=== PATIENT | female | born 1960 | race Caucasian/White ===

== ENCOUNTER 2018-02-06 09:32 | Observation (INO) | payer BC ==
[2018-02-06] MEDS ORDERED: NITROGLYCERIN OINT 1 INCH/GM PACKET TOPICAL STA (09:48)
--- NOTE | 2018-02-06 09:51 | ED ---
General Adult HPI - General Chief complaint: Chest Pain Stated complaint: Chest Pain Time Seen by Provider: 02/06/18 09:35 Source: EMS, RN notes reviewed Mode of arrival: EMS Limitations: no limitations - History of Present Illness Initial comments: This is a 57-year-old female who presents emergency Department complaining of chest pain. Patient states she started becoming short of breath on Friday thought she just had a cold and as of this morning she started having chest pain when she woke up. Patient went to an urgent care and they transferred her here immediately. Patient states she was sweaty earlier when she was having the chest pain as well. Patient states she was told after she had a CAT scan that she had a coronary artery blockage into lung masses neither of which she is followed up for. Patient also is a diabetic with hypertension and high cholesterol. Patient states she was a smoker but she quit 19 years ago. Patient denies any recent fever chills or cough. Patient denies any abdominal pain patient denies nausea vomiting diarrhea. Patient denies any lightheadedness dizziness or near syncopal episode. Patient denies any leg pain or Pain. Patient denies any leg swelling. - Related Data Home Medications Medication Instructions Recorded Confirmed Aspirin 325 mg PO DAILY 02/06/18 02/06/18 Citalopram Hydrobromide 40 mg PO DAILY 02/06/18 02/06/18 [Citalopram HBr] Dulaglutide [Trulicity] 1.5 mg SQ VASQUEZ 02/06/18 02/06/18 Insulin Degludec [Tresiba 40 unit SQ QAM 02/06/18 02/06/18 Flextouch U-100] Insulin Degludec [Tresiba 60 unit SQ HS 02/06/18 02/06/18 Flextouch U-100] Levothyroxine Sodium [Synthroid] 150 mcg PO DAILY 02/06/18 02/06/18 Lisinopril [Zestril] 20 mg PO DAILY 02/06/18 02/06/18 Omeprazole 40 mg PO DAILY 02/06/18 02/06/18 buPROPion XL [Wellbutrin Xl] 300 mg PO DAILY 02/06/18 02/06/18 metFORMIN HCL 1,000 mg PO BID 02/06/18 02/06/18 rOPINIRole HCL 4 mg PO HS 02/06/18 02/06/18 Allergies Allergy/AdvReac Type Severity Reaction Status Date / Time Penicillins Allergy Rash/Hives Verified 02/06/18 10:37 Review of Systems ROS Statement: Those systems with pertinent positive or pertinent negative responses have been documented in the HPI. ROS Other: All systems not noted in ROS Statement are negative. Past Medical History Past Medical History: Asthma, Diabetes Mellitus, GERD/Reflux, Hyperlipidemia, Hypertension, Sleep Apnea/CPAP/BIPAP, Thyroid Disorder Additional Past Medical History / Comment(s): 11/2018 - 7cm and 5cm mass found on lungs and coronary blockage History of Any Multi-Drug Resistant Organisms: None Reported Past Surgical History: Cholecystectomy, Hysterectomy Additional Past Surgical History / Comment(s): carpal tunnel release Past Psychological History: Depression Smoking Status: Former smoker Past Alcohol Use History: None Reported Past Drug Use History: None Reported General Exam - General Exam Comments Initial Comments: GENERAL: Patient is well-developed and well-nourished. Patient is nontoxic and well- hydrated and is in mild distress. ENT: Neck is soft and supple. No significant lymphadenopathy is noted. Oropharynx is clear. Moist mucous membranes. Neck has full range of motion without eliciting any pain. EYES: The sclera were anicteric and conjunctiva were pink and moist. Extraocular movements were intact and pupils were equal round and reactive to light. Eyelids were unremarkable. PULMONARY: Unlabored respirations. Good breath sounds bilaterally. No audible rales rhonchi or wheezing was noted. CARDIOVASCULAR: There is a regular rate and rhythm without any murmurs gallops or rubs. ABDOMEN: Soft and nontender with normal bowel sounds. SKIN: Skin is clear with no lesions or rashes and otherwise unremarkable. NEUROLOGIC: Patient is alert and oriented x3. Cranial nerves II through XII are grossly intact. Motor and sensory are also intact. Normal speech, volume and content. Symmetrical smile. MUSCULOSKELETAL: Normal extremities with adequate strength and full range of motion. No lower extremity swelling or edema. No calf tenderness. LYMPHATICS: No significant lymphadenopathy is noted PSYCHIATRIC: Normal psychiatric evaluation. Normal interpersonal interactions appears functionally intact in deals appropriately with others. No signs of depression. No signs of anxiety. Limitations: no limitations Course Vital Signs 02/06/18 02/06/18 09:35 10:45 Temperature 97.9 F Pulse Rate 71 75 Respiratory 18 20 Rate Blood Pressure 140/72 112/65 O2 Sat by Pulse 97 96 Oximetry Medical Decision Making - Medical Decision Making EKG shows normal sinus rhythm at 72 bpm MI interval is 146 dresses 94 Q-T intervals 434 QTC is 475. Patient's EKG shows no ST segment elevation or depression or T wave abnormalities are noted. Chest x-ray shows no acute abnormality. Patient's pain was relieved with nitroglycerin. Patient was started on heparin because of the unstable angina and although risk factors. I reviewed the CAT scan that was done at [facility] and it showed extensive coronary artery calcifications. I spoke with Dr. Bean she agreed to admit the patient admitted the patient I consult cardiology continued heparin and aspirin and Nitropaste on the floor. - Lab Data Result diagrams: 02/06/18 09:46 02/06/18 09:46 Lab Results 02/06/18 02/06/18 02/06/18 Range/Units 09:46 09:46 09:46 WBC 6.0 (3.8-10.6) k/uL RBC 4.45 (3.80-5.40) m/uL Hgb 13.2 (11.4-16.0) gm/dL Hct 37.0 (34.0-46.0) % MCV 83.1 (80.0-100.0) fL MCH 29.7 (25.0-35.0) pg MCHC 35.7 (31.0-37.0) g/dL RDW 13.5 (11.5-15.5) % Plt Count 245 (150-450) k/uL Neutrophils % 53 % Lymphocytes % 31 % Monocytes % 3 % Eosinophils % 12 % Basophils % 1 % Neutrophils # 3.2 (1.3-7.7) k/uL Lymphocytes # 1.9 (1.0-4.8) k/uL Monocytes # 0.2 (0-1.0) k/uL Eosinophils # 0.7 (0-0.7) k/uL Basophils # 0.0 (0-0.2) k/uL Hyperchromasia Slight PT (9.0-12.0) sec INR (<1.2) APTT (22.0-30.0) sec D-Dimer (<0.60) mg/L FEU Sodium 136 L (137-145) mmol/L Potassium 4.2 (3.5-5.1) mmol/L Chloride 100 (98-107) mmol/L Carbon Dioxide 25 (22-30) mmol/L Anion Gap 11 mmol/L BUN 11 (7-17) mg/dL Creatinine 0.60 (0.52-1.04) mg/dL Est GFR (CKD-EPI)AfAm >90 (>60 ml/min/1.73 sqM) Est GFR (CKD-EPI)NonAf >90 (>60 ml/min/1.73 sqM) Glucose 365 H (74-99) mg/dL Calcium 8.8 (8.4-10.2) mg/dL Magnesium 1.5 L (1.6-2.3) mg/dL Total Bilirubin 0.4 (0.2-1.3) mg/dL AST 21 (14-36) U/L ALT 37 (9-52) U/L Alkaline Phosphatase 73 (38-126) U/L Total Creatine Kinase 48 (30-135) U/L CK-MB (CK-2) 0.7 (0.0-2.4) ng/mL CK-MB (CK-2) Rel Index 1.5 Troponin I <0.012 (0.000-0.034) ng/mL Total Protein 6.0 L (6.3-8.2) g/dL Albumin 3.8 (3.5-5.0) g/dL 02/06/18 Range/Units 09:46 WBC (3.8-10.6) k/uL RBC (3.80-5.40) m/uL Hgb (11.4-16.0) gm/dL Hct (34.0-46.0) % MCV (80.0-100.0) fL MCH (25.0-35.0) pg MCHC (31.0-37.0) g/dL RDW (11.5-15.5) % Plt Count (150-450) k/uL Neutrophils % % Lymphocytes % % Monocytes % % Eosinophils % % Basophils % % Neutrophils # (1.3-7.7) k/uL Lymphocytes # (1.0-4.8) k/uL Monocytes # (0-1.0) k/uL Eosinophils # (0-0.7) k/uL Basophils # (0-0.2) k/uL Hyperchromasia PT 9.8 (9.0-12.0) sec INR 1.0 (<1.2) APTT 22.1 (22.0-30.0) sec D-Dimer 0.32 (<0.60) mg/L FEU Sodium (137-145) mmol/L Potassium (3.5-5.1) mmol/L Chloride (98-107) mmol/L Carbon Dioxide (22-30) mmol/L Anion Gap mmol/L BUN (7-17) mg/dL Creatinine (0.52-1.04) mg/dL Est GFR (CKD-EPI)AfAm (>60 ml/min/1.73 sqM) Est GFR (CKD-EPI)NonAf (>60 ml/min/1.73 sqM) Glucose (74-99) mg/dL Calcium (8.4-10.2) mg/dL Magnesium (1.6-2.3) mg/dL Total Bilirubin (0.2-1.3) mg/dL AST (14-36) U/L ALT (9-52) U/L Alkaline Phosphatase (38-126) U/L Total Creatine Kinase (30-135) U/L CK-MB (CK-2) (0.0-2.4) ng/mL CK-MB (CK-2) Rel Index Troponin I (0.000-0.034) ng/mL Total Protein (6.3-8.2) g/dL Albumin (3.5-5.0) g/dL Critical Care Time Critical Care Time: Yes Total Critical Care Time: 35 Disposition Clinical Impression: Unstable angina pectoris Disposition: ADMITTED IP TO THIS HOSP Referrals: Avinash Jean Baptiste MD [Primary Care Provider] - 1-2 days Time of Disposition: 11:36
[2018-02-06 10:02] LABS: Basophils % (A) 1 %; Eosinophils # (A) 0.7 k/uL (0-0.7); Eosinophils % (A) 12 %; HGB 13.2 gm/dL (11.4-16.0); Hyperchromasia Slight; Lymphocytes # (A) 1.9 k/uL (1.0-4.8); Lymphocytes % (A) 31 %; MCH 29.7 pg (25.0-35.0); MCHC 35.7 g/dL (31.0-37.0); MCV 83.1 fL (80.0-100.0); Mean Platelet Volume 7.3; Monocytes # (A) 0.2 k/uL (0-1.0); Monocytes % (A) 3 %; Neutrophils # (A) 3.2 k/uL (1.3-7.7); Neutrophils % (A) 53 %; Platelet Count 245 k/uL (150-450); RBC 4.45 m/uL (3.80-5.40); RDW 13.5 % (11.5-15.5)
[2018-02-06 10:13] LABS: ALT 37 U/L (9-52); AST 21 U/L (14-36); Albumin 3.8 g/dL (3.5-5.0); Alkaline Phosphatase 73 U/L (38-126); Anion Gap 11 mmol/L; Blood Urea Nitrogen 11 mg/dL (7-17); Calcium 8.8 mg/dL (8.4-10.2); Carbon Dioxide 25 mmol/L (22-30); Chloride 100 mmol/L (98-107); Glucose 365 mg/dL (74-99); Magnesium 1.5 mg/dL (1.6-2.3); Potassium 4.2 mmol/L (3.5-5.1); Sodium 136 mmol/L (137-145); Total Bilirubin 0.4 mg/dL (0.2-1.3)
--- NOTE | 2018-02-06 10:16 | XR ---
EXAMINATION TYPE: XR chest 2V DATE OF EXAM: 02/06/2018 COMPARISON: None HISTORY: 57-year-old female with chest pain and shortness of breath TECHNIQUE: PA and lateral views FINDINGS: Heart normal size. Aorta within normal limits. Pulmonary vasculature within normal limits. Mild inter stitial prominence. No consolidation or pleural effusion. IMPRESSION: Mild interstitial prominence may reflect bronchitis or asthma. No acute process otherwise seen.
[2018-02-06 10:22] LABS: D-Dimer 0.32 mg/L FEU (<0.60); Partial Thromboplastin Time 22.1 sec (22.0-30.0); Prothrombin Time 9.8 sec (9.0-12.0)
[2018-02-06 10:24] LABS: Creatine Kinase 48 U/L (30-135)
[2018-02-06 10:37] LABS: Creatine Kinase MB 0.7 ng/mL (0.0-2.4); Troponin I <0.012 ng/mL (0.000-0.034)
[2018-02-06] MEDS ORDERED: HEPARIN SODIUM,PORCINE 5,000 UNIT/ML 1 ML VIAL IV ONE (11:32)
[2018-02-06] MEDS ORDERED: NITROGLYCERIN SL TABS 0.4 MG TAB SUBLINGUAL PRN (11:36)
[2018-02-06] MEDS: NITROGLYCERIN OINT 1 INCH/GM PACKET TOPICAL SCH ×2 (12:15→20:10)
[2018-02-06] MEDS: HEPARIN SOD,PORK IN 0.45% NACL 25,000 UNIT in 0.45% NACL 1 500ML.BAG IV SCH (12:24)
[2018-02-06] MEDS ORDERED: NALOXONE 0.4 MG/ML 1 ML VIAL IV PRN (14:23)
[2018-02-06] MEDS ORDERED: ACETAMINOPHEN TAB 325 MG TAB PO PRN (14:23)
--- NOTE | 2018-02-06 14:38 | P.HPIM ---
History of Present Illness H&P Date: 02/06/18 Chief Complaint: Chest pain 57-year-old female who presented to the ER complaining of chest pain and shortness of breath that started yesterday. Patient stated on Friday she started having flu likel symptoms, with cough, congestion. She said she was getting better 2 days ago. Because of the chest pain patient went to an urgent care and they transferred her here immediately because of abnormal EKG. The chest pain feels like a pressure and it is associated with dizziness, diaphoresis as well as nausea. No vomiting. Patient has similar symptoms in September 2016 which was having a cold, she had an echocardiogram and a stress test and she was told that both were normal. In November she had a CAT scan of the chest to screen for lung cancer because of history of smoking and at that time she was told that she had a lot of coronary arteries calcifications. Patient also is a diabetic with hypertension and high cholesterol. She is an ex smoker, quit 19 years ago. Patient denied any recent fever chills. Patient denies any abdominal pain, no diarrhea. Patient denied any leg swelling. In the emergency department she had a nitroglycerin patch placed in her chest and according to patient that took care of her pain. Review of Systems 12 point review of system performed, negative except for HPI Past Medical History Past Medical History: Asthma, Diabetes Mellitus, GERD/Reflux, Hyperlipidemia, Hypertension, Sleep Apnea/CPAP/BIPAP, Thyroid Disorder Additional Past Medical History / Comment(s): 11/2017 pt states she had a cat scan at [facility] which showed lung masses, coronary blockages and fatty liver-she states she has not followed up with these d/t just getting new employment, pt states she recently took herself off statin, IDDM type II, SALUD with Cpap 12 CFM, colon polyps-benign, hypothyroid History of Any Multi-Drug Resistant Organisms: None Reported Past Surgical History: Cholecystectomy, Hysterectomy, Orthopedic Surgery Additional Past Surgical History / Comment(s): Bilateral carpal tunnel release, bilateral tarsal tunnel releases, bilateral trigger finger releases, colonoscopies and benign polypectomies Past Anesthesia/Blood Transfusion Reactions: No Reported Reaction Smoking Status: Former smoker - Past Family History Father Family Medical History: Cancer, Diabetes Mellitus, Hyperlipidemia, Hypertension Additional Family Medical History / Comment(s): Father had colon and skin cancer. He is 83 yrs old. Mother Family Medical History: Coronary Artery Disease (CAD), Hypertension, Thyroid Disorder Additional Family Medical History / Comment(s): Mother had depression, alcoholism. She is 80yrs old. Medications and Allergies Home Medications Medication Instructions Recorded Confirmed Type Aspirin 325 mg PO DAILY 02/06/18 02/06/18 History Citalopram Hydrobromide 40 mg PO DAILY 02/06/18 02/06/18 History [Citalopram HBr] Dulaglutide [Trulicity] 1.5 mg SQ VASQUEZ 02/06/18 02/06/18 History Insulin Degludec [Tresiba 40 unit SQ QAM 02/06/18 02/06/18 History Flextouch U-100] Insulin Degludec [Tresiba 60 unit SQ HS 02/06/18 02/06/18 History Flextouch U-100] Levothyroxine Sodium [Synthroid] 150 mcg PO DAILY 02/06/18 02/06/18 History Lisinopril [Zestril] 20 mg PO DAILY 02/06/18 02/06/18 History Omeprazole 40 mg PO DAILY 02/06/18 02/06/18 History buPROPion XL [Wellbutrin Xl] 300 mg PO DAILY 02/06/18 02/06/18 History metFORMIN HCL 1,000 mg PO BID 02/06/18 02/06/18 History rOPINIRole HCL 4 mg PO HS 02/06/18 02/06/18 History Allergies Allergy/AdvReac Type Severity Reaction Status Date / Time Penicillins Allergy Rash/Hives Verified 02/06/18 10:37 Physical Exam Vitals: Vital Signs Temp Pulse Resp BP BP Pulse Ox 02/06/18 13:14 97.2 F L 16 118/58 98 02/06/18 13:01 97.2 F L 02/06/18 12:14 74 18 102/54 96 02/06/18 10:45 75 20 112/65 96 02/06/18 09:35 97.9 F 71 18 140/72 97 Intake and Output 02/05/18 02/06/18 02/06/18 22:59 06:59 14:59 Other: Weight 104.78 kg Constitutional: No acute distress, conversant, pleasant Eyes:Anicteric sclerae, moist conjunctiva, no lid-lag, PERRLA, ENMT: Oropharynx clear, no erythema, exudates Neck: Supple, FROM, no masses, or JVD, No carotid bruits, No thyromegaly Lungs: Expiratory wheezes, otherwise clear , Clear to percussion, Normal respiratory effort, no accessory muscle use Cardiovascular: Heart regular in rate and rhythm, No murmurs, gallops, or rubs, No peripheral edema Abdominal: Soft, Nontender, no guarding, rebound or rigidity, Normoactive bowel sounds, No hepatomegaly, No splenomegaly, No palpable mass Skin: Normal temperature, tone, texture, turgor, no induration, No subcutaneous nodules, No rash, lesions, No ulcers Extremities: No digital cyanosis, No clubbing, Pedal pulses intact and symmetrical, Radial pulses intact and symmetrical, No calf tenderness Psychiatric: Alert and oriented to person, place and time, appropriate affect, intact judgement Neuro: Muscles Strength 5/5 in all 4 extremities, Sensation to light touch grossly present throughout, Cranial nerves II-XII grossly intact, no focal sensory deficits Results CBC & Chem 7: 02/06/18 09:46 02/06/18 09:46 Labs: Abnormal Lab Results - Last 24 Hours (Table) 02/06/18 Range/Units 09:46 Sodium 136 L (137-145) mmol/L Glucose 365 H (74-99) mg/dL Magnesium 1.5 L (1.6-2.3) mg/dL Total Protein 6.0 L (6.3-8.2) g/dL Thrombosis Risk Factor Assmnt - Choose All That Apply Any of the Below Risk Factors Present?: Yes Each Factor Represents 1 point: Age 41-60 years, Obesity (BMI >25) Other Risk Factors: No Other congenital or acquired thrombophilia - If yes, enter type in comment: No Thrombosis Risk Factor Assessment Total Risk Factor Score: 2 Thrombosis Risk Factor Assessment Level: Low Risk Assessment and Plan Plan: Chest pain or shortness of breath: Admit to observation Telemetry Consult cardiology Cycle troponins We'll leave decision for further workup according to cardiology Acute asthma exacerbation Steroids and DuoNeb Type 2 diabetes Mellitus: Continue home insulin regimen, blood sugars controlled History of chronic GERD/Reflux, Hyperlipidemia, Hypertension, Sleep Apnea/CPAP/ BIPAP, hypothyroidism: All stable Resume home meds
[2018-02-06 16:11] LABS: Creatine Kinase 45 U/L (30-135)
[2018-02-06] MEDS: MAGNESIUM SULFATE-D5W PMX 1 GM in DEXTROSE/WATER 1 100ML.BAG IVPB SCH ×2 (16:13→18:46)
[2018-02-06] MEDS: methylPREDNISolone SOD SUCCI 40 MG/ML 1 ML VIAL IV SCH ×2 (16:13→22:19)
[2018-02-06 16:23] LABS: Creatine Kinase MB 0.8 ng/mL (0.0-2.4); Troponin I <0.012 ng/mL (0.000-0.034)
[2018-02-06 18:38] VITALS: RESP 18
[2018-02-06] MEDS: INSULIN ASPART 100 UNIT/ML 1 ML 10 ML VIAL SQ SCH ×2 (18:43→20:55)
[2018-02-06 20:16] LABS: Glucose,Whole Blood 435 mg/dL (75-99)
[2018-02-06] MEDS: IPRATROPIUM-ALBUTEROL 3 ML NEB INHALATION SCH (20:31)
[2018-02-06] MEDS: INSULIN DETEMIR 100 UNIT/ML 10 ML VIAL SQ SCH (22:16)
[2018-02-06] MEDS: rOPINIRole HCL 4 MG TABLET PO SCH (22:18)
[2018-02-06] MEDS: metFORMIN 500 MG TAB PO SCH (22:19)
[2018-02-06 22:38] LABS: Creatine Kinase 46 U/L (30-135)
[2018-02-06 22:49] LABS: Creatine Kinase MB 0.7 ng/mL (0.0-2.4); Troponin I <0.012 ng/mL (0.000-0.034)
[2018-02-07 02:21] LABS: Basophils % (A) 0 %; Eosinophils # (A) 0.1 k/uL (0-0.7); Eosinophils % (A) 1 %; HCT 38.4 % (34.0-46.0); HGB 13.7 gm/dL (11.4-16.0); Lymphocytes # (A) 0.8 k/uL (1.0-4.8); Lymphocytes % (A) 11 %; MCH 29.4 pg (25.0-35.0); MCHC 35.5 g/dL (31.0-37.0); MCV 82.8 fL (80.0-100.0); Mean Platelet Volume 7.2; Monocytes # (A) 0.1 k/uL (0-1.0); Monocytes % (A) 2 %; Neutrophils # (A) 6.3 k/uL (1.3-7.7); Neutrophils % (A) 86 %; Platelet Count 239 k/uL (150-450); RBC 4.64 m/uL (3.80-5.40); RDW 13.2 % (11.5-15.5); WBC 7.3 k/uL (3.8-10.6)
[2018-02-07 02:44] LABS: ALT 39 U/L (9-52); AST 21 U/L (14-36); Albumin 4.4 g/dL (3.5-5.0); Alkaline Phosphatase 85 U/L (38-126); Anion Gap 15 mmol/L; Blood Urea Nitrogen 15 mg/dL (7-17); Calcium 9.4 mg/dL (8.4-10.2); Carbon Dioxide 24 mmol/L (22-30); Chloride 98 mmol/L (98-107); Cholesterol 214 mg/dL (<200); Glucose 331 mg/dL (74-99); HDL Cholesterol 48 mg/dL (40-60); LDL Cholesterol,Calculated 135 mg/dL (0-99); Phosphorus 4.4 mg/dL (2.5-4.5); Potassium 4.8 mmol/L (3.5-5.1); Sodium 137 mmol/L (137-145); Total Bilirubin 0.4 mg/dL (0.2-1.3); Total Protein 6.9 g/dL (6.3-8.2); Triglycerides 153 mg/dL (<150)
[2018-02-07 07:16] LABS: Glucose,Whole Blood 274 mg/dL (75-99)
[2018-02-07] MEDS ORDERED: PANTOPRAZOLE 40 MG TABLET PO SCH (07:30)
--- NOTE | 2018-02-07 08:03 | P.CRDCN ---
History of Present Illness Consult date: 02/07/18 Chief complaint: Chest discomfort History of present illness: This is a pleasant 57-year-old female patient with an extensive past medical history consistent off coronary artery disease documented on computed tomography scan of the chest showing coronary calcifications according to her, diabetes for the last 20 years, hypertension, and dyslipidemia, presented to the hospital complaining of chest discomfort. The patient symptoms started about 3 days ago with upper respiratory infection/ flulike symptoms. Yesterday she was at home when she started experiencing discomfort in the chest as a pressure across the chest without any radiation but it was associated with sweating and shortness of breath. She presented to the urgent care where an EKG was performed and the patient was referred directly to the hospital. The EKG showed sinus rhythm with poor R-wave progression. The patient was given nitroglycerin sublingual in the emergency room with immediate relief of her symptoms. She continues to be pain-free since then. The cardiac enzymes were checked and came in to be unremarkable. The EKG in the hospital showing sinus rhythm with poor R-wave progression and nonspecific changes. The patient stated that she does have dyslipidemia and she used to be on statin as well as gemfibrozil and both are on hold at this point because she was found to have elevated liver function tests recently. She also stated that she underwent a stress test and echocardiogram in November 2016 at [facility] and that came in to be unremarkable according to her. I am concerned about severe underlying coronary artery disease in this lady with multiple risk factors for CAD including diabetes as well as prior history of smoking and significant family history of coronary artery disease. I am going to obtain an echocardiogram was Doppler. Add metoprolol to the current medical regimen with aspirin. Continue IV heparin for now. If the patient develop any more episodes of chest discomfort I do feel that she is to have a coronary angiogram. Otherwise stress testing to be done to rule out any severe underlying coronary artery disease. Past Medical History Past Medical History: Asthma, Diabetes Mellitus, GERD/Reflux, Hyperlipidemia, Hypertension, Sleep Apnea/CPAP/BIPAP, Thyroid Disorder Additional Past Medical History / Comment(s): 11/2017 pt states she had a cat scan at [facility] which showed lung masses, coronary blockages and fatty liver-she states she has not followed up with these d/t just getting new employment, pt states she recently took herself off statin, IDDM type II, SALUD with Cpap 12 CFM, colon polyps-benign, hypothyroid History of Any Multi-Drug Resistant Organisms: None Reported Past Surgical History: Cholecystectomy, Hysterectomy, Orthopedic Surgery Additional Past Surgical History / Comment(s): Bilateral carpal tunnel release, bilateral tarsal tunnel releases, bilateral trigger finger releases, colonoscopies and benign polypectomies Past Anesthesia/Blood Transfusion Reactions: No Reported Reaction Smoking Status: Former smoker - Past Family History Father Family Medical History: Cancer, Diabetes Mellitus, Hyperlipidemia, Hypertension Additional Family Medical History / Comment(s): Father had colon and skin cancer. He is 83 yrs old. Mother Family Medical History: Coronary Artery Disease (CAD), Hypertension, Thyroid Disorder Additional Family Medical History / Comment(s): Mother had depression, alcoholism. She is 80yrs old. Medications and Allergies Home Medications Medication Instructions Recorded Confirmed Type Aspirin 325 mg PO DAILY 02/06/18 02/06/18 History Citalopram Hydrobromide 40 mg PO DAILY 02/06/18 02/06/18 History [Citalopram HBr] Dulaglutide [Trulicity] 1.5 mg SQ VASQUEZ 02/06/18 02/06/18 History Insulin Degludec [Tresiba 40 unit SQ QAM 02/06/18 02/06/18 History Flextouch U-100] Insulin Degludec [Tresiba 60 unit SQ HS 02/06/18 02/06/18 History Flextouch U-100] Levothyroxine Sodium [Synthroid] 150 mcg PO DAILY 02/06/18 02/06/18 History Lisinopril [Zestril] 20 mg PO DAILY 02/06/18 02/06/18 History Omeprazole 40 mg PO DAILY 02/06/18 02/06/18 History buPROPion XL [Wellbutrin Xl] 300 mg PO DAILY 02/06/18 02/06/18 History metFORMIN HCL 1,000 mg PO BID 02/06/18 02/06/18 History rOPINIRole HCL 4 mg PO HS 02/06/18 02/06/18 History Allergies Allergy/AdvReac Type Severity Reaction Status Date / Time Penicillins Allergy Rash/Hives Verified 02/06/18 10:37 Physical Exam Vitals: Vital Signs Temp Pulse Pulse Resp BP BP BP 02/07/18 05:52 97.7 F 18 135/66 02/07/18 04:00 75 18 02/07/18 00:00 97.7 F 18 142/61 02/06/18 20:43 82 02/06/18 20:33 85 02/06/18 20:00 75 18 132/60 02/06/18 18:37 81 18 147/70 02/06/18 15:13 97.2 F L 16 120/58 02/06/18 13:14 97.2 F L 16 118/58 02/06/18 13:01 97.2 F L 02/06/18 12:14 74 18 102/54 02/06/18 10:45 75 20 112/65 02/06/18 09:35 97.9 F 71 18 140/72 Pulse Ox 02/07/18 05:52 93 L 02/07/18 04:00 02/07/18 00:00 96 02/06/18 20:43 02/06/18 20:33 02/06/18 20:00 94 L 02/06/18 18:37 94 L 02/06/18 15:13 97 02/06/18 13:14 98 02/06/18 13:01 02/06/18 12:14 96 02/06/18 10:45 96 02/06/18 09:35 97 Intake and Output 02/06/18 02/07/18 02/07/18 22:59 06:59 14:59 Intake Total 220 321 Balance 220 321 Intake: Intake, IV Titration 321 Amount Heparin Sod,Pork in 0.45% 321 NaCl 25,000 unit In 0.45 % NaCl 1 500ml.bag @ 9. 544 UNITS/KG/HR 20 mls/hr IV .Q24H [facility] Rx#: [id number] Oral 220 Other: Voiding Method Toilet Toilet # Voids 1 1 Weight 102.8 kg 102.8 kg - Constitutional General appearance: no acute distress - Respiratory Respiratory: bilateral: CTA - Cardiovascular Rhythm: regular Heart sounds: normal: S1, S2 Results 02/07/18 02:07 02/07/18 02:07 Cardiac Enzymes 02/06/18 02/06/18 02/06/18 Range/Units 09:46 09:46 15:28 AST 21 (14-36) U/L CK-MB (CK-2) 0.7 0.8 (0.0-2.4) ng/mL Troponin I <0.012 <0.012 (0.000-0.034) ng/mL 02/06/18 02/07/18 Range/Units 21:51 02:07 AST 21 (14-36) U/L CK-MB (CK-2) 0.7 (0.0-2.4) ng/mL Troponin I <0.012 (0.000-0.034) ng/mL Coagulation 02/06/18 02/06/18 02/07/18 Range/Units 09:46 18:53 02:07 PT 9.8 (9.0-12.0) sec APTT 22.1 25.8 25.7 (22.0-30.0) sec Lipids 02/07/18 Range/Units 02:07 Triglycerides 153 H (<150) mg/dL Cholesterol 214 H (<200) mg/dL HDL Cholesterol 48 (40-60) mg/dL CBC 02/06/18 02/07/18 Range/Units 09:46 02:07 WBC 6.0 7.3 (3.8-10.6) k/uL RBC 4.45 4.64 (3.80-5.40) m/uL Hgb 13.2 13.7 (11.4-16.0) gm/dL Hct 37.0 38.4 (34.0-46.0) % Plt Count 245 239 (150-450) k/uL Comprehensive Metabolic Panel 02/06/18 02/07/18 Range/Units 09:46 02:07 Sodium 136 L 137 (137-145) mmol/L Potassium 4.2 4.8 (3.5-5.1) mmol/L Chloride 100 98 (98-107) mmol/L Carbon Dioxide 25 24 (22-30) mmol/L BUN 11 15 (7-17) mg/dL Creatinine 0.60 0.60 (0.52-1.04) mg/dL Glucose 365 H 331 H (74-99) mg/dL Calcium 8.8 9.4 (8.4-10.2) mg/dL AST 21 21 (14-36) U/L ALT 37 39 (9-52) U/L Alkaline Phosphatase 73 85 (38-126) U/L Total Protein 6.0 L 6.9 (6.3-8.2) g/dL Albumin 3.8 4.4 (3.5-5.0) g/dL Current Medications Generic Name Dose Route Start Last Admin Trade Name Freq PRN Reason Stop Dose Admin Acetaminophen 650 mg 02/06/18 14:23 Tylenol Tab PO Q6HR PRN Mild Pain or Fever > 100.5 Albuterol/Ipratropium 3 ml 02/06/18 20:00 02/06/18 20:31 Duoneb 0.5 Mg-3 Mg/3 Ml Soln INHALATION 3 ml RT-BID [facility] Administration Aspirin 325 mg 02/07/18 09:00 Aspirin PO DAILY [facility] Bupropion HCl 300 mg 02/07/18 09:00 Wellbutrin Xl PO DAILY [facility] Citalopram Hydrobromide 40 mg 02/07/18 09:00 Celexa PO DAILY [facility] Heparin Sodium/Sodium Chloride 500 mls @ 20 mls/hr 02/06/18 11:45 02/07/18 04 :27 25,000 unit/ Sodium Chloride IV 12.4 units/kg/hr .Q24H [facility] 26 mls/hr Titration Protocol 9.544 UNITS/KG/HR Insulin Aspart 0 unit 02/06/18 17:30 02/06/18 20:55 Novolog SQ 12 unit ACHS [facility] Administration Protocol Insulin Detemir 40 unit 02/07/18 09:00 Levemir SQ QAM [facility] Insulin Detemir 60 unit 02/06/18 21:00 02/06/18 22:16 Levemir SQ 60 unit HS [facility] Administration Levothyroxine Sodium 150 mcg 02/07/18 06:30 Synthroid PO DAILY@0630 [facility] Lisinopril 20 mg 02/07/18 09:00 Zestril PO DAILY [facility] Metformin HCl 1,000 mg 02/06/18 21:00 02/06/18 22:19 Glucophage PO 1,000 mg BID [facility] Administration Methylprednisolone Sodium Succinate 40 mg 02/06/18 16:00 02/06/18 22:19 Solu-Medrol IV 40 mg TID [facility] Administration Naloxone HCl 0.2 mg 02/06/18 14:23 Narcan IV Q2M PRN Opioid Reversal Nitroglycerin 1 inch 02/06/18 13:00 02/06/18 20:10 Nitro-Bid Oint TOPICAL Not Given Q6HR [facility] Nitroglycerin 0.4 mg 02/06/18 11:36 Nitrostat SUBLINGUAL Q5M PRN Chest Pain Non-Formulary Medication 1.5 mg 02/08/18 14:34 Dulaglutide [Trulicity] SQ VASQUEZ [facility] Pantoprazole Sodium 40 mg 02/07/18 07:30 Protonix PO AC-BRKFST [facility] Ropinirole HCl 4 mg 02/06/18 21:00 02/06/18 22:18 Requip PO 4 mg HS [facility] Administration Intake and Output 02/06/18 02/07/18 02/07/18 22:59 06:59 14:59 Intake Total 220 321 Balance 220 321 Intake: Intake, IV Titration 321 Amount Heparin Sod,Pork in 0.45% 321 NaCl 25,000 unit In 0.45 % NaCl 1 500ml.bag @ 9. 544 UNITS/KG/HR 20 mls/hr IV .Q24H [facility] Rx#: [id number] Oral 220 Other: Voiding Method Toilet Toilet # Voids 1 1 Weight 102.8 kg 102.8 kg 02/07/18 02:07 02/07/18 02:07 Assessment and Plan Assessment: Assessment #1 chest discomfort #2 multiple risk factors for CAD #3 prior history of smoking Plan #1 acute coronary event was ruled out #2 severe underlying coronary artery disease to be ruled out #3 add metoprolol to the current medical regimen #4 continue monitoring the patient for additional 24 hours #5 obtain an echocardiogram was Doppler #6 follow-up with the patient Thank you for allowing us participate in the care of the patient
[2018-02-07] MEDS: NITROGLYCERIN OINT 1 INCH/GM PACKET TOPICAL SCH ×3 (08:16→17:31)
[2018-02-07] MEDS: metFORMIN 500 MG TAB PO SCH ×2 (08:33→21:01)
[2018-02-07] MEDS: INSULIN ASPART 100 UNIT/ML 1 ML 10 ML VIAL SQ SCH ×4 (08:40→20:51)
[2018-02-07] MEDS: INSULIN DETEMIR 100 UNIT/ML 10 ML VIAL SQ SCH ×2 (08:41→21:22)
[2018-02-07] MEDS: METOPROLOL TARTRATE 25 MG TAB PO SCH ×3 (08:44→21:09)
[2018-02-07] MEDS: ASPIRIN 325 MG TAB PO SCH (08:44)
[2018-02-07] MEDS: LISINOPRIL 20 MG TAB PO SCH (08:44)
[2018-02-07] MEDS: LEVOTHYROXINE 75 MCG TAB PO SCH (08:45)
[2018-02-07] MEDS: methylPREDNISolone SOD SUCCI 40 MG/ML 1 ML VIAL IV SCH ×3 (08:45→21:03)
[2018-02-07] MEDS: buPROPion XL 300 MG TAB.ER.24H PO SCH (08:45)
[2018-02-07] MEDS: CITALOPRAM HYDROBROMIDE 20 MG TAB PO SCH (08:45)
[2018-02-07] MEDS ORDERED: ASPIRIN 325 MG TAB PO SCH (09:00)
[2018-02-07] MEDS: IPRATROPIUM-ALBUTEROL 3 ML NEB INHALATION SCH ×2 (11:27→19:17)
[2018-02-07 12:11] LABS: Glucose,Whole Blood 263 mg/dL (75-99)
[2018-02-07] MEDS: HEPARIN SOD,PORK IN 0.45% NACL 25,000 UNIT in 0.45% NACL 1 500ML.BAG IV SCH (13:21)
--- NOTE | 2018-02-07 13:30 | ECHOF ---
Referral Reason:chest pain MEASUREMENTS -------- HEIGHT: 162.6 cm WEIGHT: 102.5 kg BP: 142/61 IVSd: 1.0 cm (0.6 - 1.1) LVIDd: 4.3 cm (3.9 - 5.3) LVPWd: 1.2 cm (0.6 - 1.1) IVSs: 1.3 cm LVIDs: 2.0 cm LVPWs: 2.3 cm LAESV Index (A-L): 20.94 ml/m Ao Diam: 3.4 cm (2.0 - 3.7) AV Cusp: 2.0 cm (1.5 - 2.6) LA Diam: 3.2 cm (2.7 - 3.8) MV EXCURSION: 9.371 mm (> 18.000) MV EF SLOPE: 91 mm/s (70 - 150) EPSS: 1.1 cm MV E Woodrow: 0.98 m/s MV DecT: 199 ms MV A Woodrow: 0.93 m/s MV E/A Ratio: 1.06 AV maxP.13 mmHg AV meanP.93 mmHg RAP: 5.00 mmHg RVSP: 12.99 mmHg FINDINGS -------- Sinus rhythm. This was a technically good study. The left ventricular size is normal. There is mild concentric left ventricular hypertrophy. Overa ll left ventricular systolic function is normal with, an EF between 55 - 60 %. The right ventricle is normal in size and function. The left atrium is normal in size. The right atrium is normal in size. Aortic valve is trileaflet and is mildly thickened. There is mild aortic valve sclerosis. The mitral valve leaflets are mildly thickened. Mild mitral regurgitation is present. Mild tricuspid regurgitation present. The right ventricular systolic pressure, as measured by Doppl er, is 12.99mmHg. Pulmonic valve appears structurally normal. The aortic root size is normal. Normal inferior vena cava with normal inspiratory collapse consistent with estimated right atrial pre ssure of 5 mmHg. The pericardium is normal. CONCLUSIONS -------- 1. Sinus rhythm. 2. This was a technically good study. 3. The left ventricular size is normal. 4. There is mild concentric left ventricular hypertrophy. 5. Overall left ventricular systolic function is normal with, an EF between 55 - 60 %. 6. The right ventricle is normal in size and function. 7. The left atrium is normal in size. 8. The right atrium is normal in size. 9. Aortic valve is trileaflet and is mildly thickened. 10. There is mild aortic valve sclerosis. 11. The mitral valve leaflets are mildly thickened. 12. Mild mitral regurgitation is present. 13. Mild tricuspid regurgitation present. 14. The right ventricular systolic pressure, as measured by Doppler, is 12.99mmHg. 15. Pulmonic valve appears structurally normal. 16. The aortic root size is normal. 17. Normal inferior vena cava with normal inspiratory collapse consistent with estimated right atrial pressure of 5 mmHg. 18. The pericardium is normal. HEALTHCARE FINANCIAL ANALYST: Ashley Mattson RDCS
--- NOTE | 2018-02-07 14:12 | P.PN ---
Subjective Progress Note Date: 02/07/18 Principal diagnosis: Chest pain No recurrent symptoms of chest pain or sob. Objective - Vital Signs Vital signs: Vital Signs Temp 98.0 F 02/07/18 11:35 Pulse 71 02/07/18 11:35 Resp 18 02/07/18 11:59 BP 150/72 02/07/18 11:35 Pulse Ox 94 L 02/07/18 11:35 Intake & Output 02/06/18 02/07/18 02/07/18 18:59 06:59 18:59 Intake Total 220 321 480 Balance 220 321 480 Weight 102.8 kg 102.8 kg Intake: Intake, IV Titration 321 Amount Heparin Sod,Pork in 0.45% 321 NaCl 25,000 unit In 0.45 % NaCl 1 500ml.bag @ 9. 544 UNITS/KG/HR 20 mls/hr IV .Q24H [facility] Rx#: [id number] Oral 220 480 Other: Voiding Method Toilet Toilet Toilet # Voids 1 - Exam Constitutional: No acute distress, conversant, pleasant Eyes:Anicteric sclerae, moist conjunctiva, no lid-lag, PERRLA, ENMT: Oropharynx clear, no erythema, exudates Neck: Supple, FROM, no masses, or JVD, No carotid bruits, No thyromegaly Lungs: Clear to auscultation, Clear to percussion, Normal respiratory effort, no accessory muscle use Cardiovascular: Heart regular in rate and rhythm, No murmurs, gallops, or rubs, No peripheral edema Abdominal: Soft, Nontender, no guarding, rebound or rigidity, Normoactive bowel sounds, No hepatomegaly, No splenomegaly, No palpable mass Skin: Normal temperature, tone, texture, turgor, no induration, No subcutaneous nodules, No rash, lesions, No ulcers Extremities: No digital cyanosis, No clubbing, Pedal pulses intact and symmetrical, Radial pulses intact and symmetrical, No calf tenderness Psychiatric: Alert and oriented to person, place and time, appropriate affect, intact judgement Neuro: Muscles Strength 5/5 in all 4 extremities, Sensation to light touch grossly present throughout, Cranial nerves II-XII grossly intact, no focal sensory deficits - Labs CBC & Chem 7: 02/07/18 02:07 02/07/18 02:07 Labs: Abnormal Lab Results - Last 24 Hours (Table) 02/06/18 02/07/18 02/07/18 Range/Units 20:15 02:07 02:07 Lymphocytes # 0.8 L (1.0-4.8) k/uL Glucose 331 H (74-99) mg/dL POC Glucose (mg/dL) 435 H (75-99) mg/dL Triglycerides 153 H (<150) mg/dL Cholesterol 214 H (<200) mg/dL LDL Cholesterol, Calc 135 H (0-99) mg/dL 02/07/18 02/07/18 Range/Units 07:14 12:09 Lymphocytes # (1.0-4.8) k/uL Glucose (74-99) mg/dL POC Glucose (mg/dL) 274 H 263 H (75-99) mg/dL Triglycerides (<150) mg/dL Cholesterol (<200) mg/dL LDL Cholesterol, Calc (0-99) mg/dL Assessment and Plan Plan: Chest pain or shortness of breath: Continue to observe on telemetry Cardiology recommends monitoring for 24 hours more. Cycled troponins--negative Echo done--wnl. Acute asthma exacerbation Steroids and DuoNeb Type 2 diabetes Mellitus: Continue home insulin regimen, blood sugars controlled History of chronic GERD/Reflux, Hyperlipidemia, Hypertension, Sleep Apnea/CPAP/ BIPAP, hypothyroidism: All stable Resume home meds
[2018-02-07 17:05] LABS: Glucose,Whole Blood 266 mg/dL (75-99)
[2018-02-07 20:47] LABS: Glucose,Whole Blood 338 mg/dL (75-99)
[2018-02-07] MEDS: rOPINIRole HCL 4 MG TABLET PO SCH (21:01)
[2018-02-08] MEDS: NITROGLYCERIN OINT 1 INCH/GM PACKET TOPICAL SCH ×2 (04:12→06:49)
[2018-02-08] MEDS: LEVOTHYROXINE 75 MCG TAB PO SCH (06:55)
[2018-02-08 07:10] LABS: Glucose,Whole Blood 269 mg/dL (75-99)
[2018-02-08] MEDS: IPRATROPIUM-ALBUTEROL 3 ML NEB INHALATION SCH (07:19)
[2018-02-08 07:36] VITALS: BP 124/70; PULSE 64; TEMP 97.8
[2018-02-08] MEDS: INSULIN ASPART 100 UNIT/ML 1 ML 10 ML VIAL SQ SCH (08:00)
[2018-02-08] MEDS: ASPIRIN 325 MG TAB PO SCH (08:01)
[2018-02-08] MEDS: METOPROLOL TARTRATE 25 MG TAB PO SCH (08:02)
[2018-02-08] MEDS: buPROPion XL 300 MG TAB.ER.24H PO SCH (08:02)
[2018-02-08] MEDS: CITALOPRAM HYDROBROMIDE 20 MG TAB PO SCH (08:02)
[2018-02-08] MEDS: LISINOPRIL 20 MG TAB PO SCH (08:02)
[2018-02-08] MEDS: methylPREDNISolone SOD SUCCI 40 MG/ML 1 ML VIAL IV SCH (08:03)
[2018-02-08] MEDS: INSULIN DETEMIR 100 UNIT/ML 10 ML VIAL SQ SCH (09:03)
--- NOTE | 2018-02-08 09:23 | P.PN ---
Subjective Progress Note Date: 02/08/18 Principal diagnosis: Chest pain This is a pleasant 57-year-old female patient with an extensive past medical history consistent off coronary artery disease documented on computed tomography scan of the chest showing coronary calcifications according to her, diabetes for the last 20 years, hypertension, and dyslipidemia, presented to the hospital complaining of chest discomfort. The patient symptoms started about 3 days ago with upper respiratory infection/ flulike symptoms. Yesterday she was at home when she started experiencing discomfort in the chest as a pressure across the chest without any radiation but it was associated with sweating and shortness of breath. She presented to the urgent care where an EKG was performed and the patient was referred directly to the hospital. The EKG showed sinus rhythm with poor R-wave progression. The patient was given nitroglycerin sublingual in the emergency room with immediate relief of her symptoms. She continues to be pain-free since then. The cardiac enzymes were checked and came in to be unremarkable. The EKG in the hospital showing sinus rhythm with poor R-wave progression and nonspecific changes. The patient stated that she does have dyslipidemia and she used to be on statin as well as gemfibrozil and both are on hold at this point because she was found to have elevated liver function tests recently. She also stated that she underwent a stress test and echocardiogram in November 2016 at [facility] and that came in to be unremarkable according to her. During this admission, the patient continues to be pain-free. 3 sets of cardiac enzymes came in to be unremarkable. The echocardiogram showed normal LV function without any significant valvular abnormalities. Yesterday I did add metoprolol to the current medical regimen. I did advise proceeding with a stress test. The patient expressed the wishes that she would like to go home because she just started a new job and she would like to work tomorrow. Because of that I did recommend the patient to get up and around and if she is pain-free she might be able to go home and I will do a stress test on her as an outpatient. I advised the patient to come back to the emergency room if she developed any more episodes of chest discomfort. Objective - Vital Signs Vital signs: Vital Signs Temp 97.8 F 02/08/18 07:10 Pulse 82 02/08/18 07:28 Resp 18 02/08/18 07:10 BP 124/70 02/08/18 07:10 Pulse Ox 94 L 02/08/18 07:10 Intake & Output 02/07/18 02/08/18 02/08/18 18:59 06:59 18:59 Intake Total 1100 Balance 1100 Weight 102.8 kg Intake: Oral 1100 Other: Voiding Method Toilet Toilet # Voids 1 - Constitutional General appearance: Present: no acute distress - Respiratory Respiratory: bilateral: CTA - Cardiovascular Rhythm: regular Heart sounds: normal: S1, S2 - Labs CBC & Chem 7: 02/07/18 02:07 02/07/18 02:07 Labs: Abnormal Lab Results - Last 24 Hours (Table) 02/07/18 02/07/18 02/07/18 Range/Units 12:09 17:02 20:38 POC Glucose (mg/dL) 263 H 266 H 338 H (75-99) mg/dL 02/08/18 Range/Units 07:08 POC Glucose (mg/dL) 269 H (75-99) mg/dL Assessment and Plan Assessment: Assessment #1 chest discomfort #2 multiple risk factors for CAD #3 prior history of smoking Plan #1 acute coronary syndrome was ruled out. #2 the patient continues to be pain-free during her hospitalization #3 she does need to have a stress test and she would like to have it done as an outpatient. Thank you for allowing us participate in her care.
--- NOTE | 2018-02-08 10:32 | P.DS ---
Providers Date of admission: 02/06/18 11:37 Expected date of discharge: 02/08/18 Attending physician: Jessica Bean DO Consults: 02/06/18 11:36 Consult Physician Urgent Consulting Provider: [facility] Consult Reason/Comments: Chest pain Do you want consulting provider notified?: Yes Primary care physician: [facility] Course: 57-year-old female who presented to the ER complaining of chest pain and shortness of breath that started yesterday. Patient stated on Friday she started having flu likel symptoms, with cough, congestion. She said she was getting better 2 days ago. Because of the chest pain patient went to an urgent care and they transferred her here immediately because of abnormal EKG. The chest pain feels like a pressure and it is associated with dizziness, diaphoresis as well as nausea. No vomiting. Patient has similar symptoms in September 2016 which was having a cold, she had an echocardiogram and a stress test and she was told that both were normal. In November she had a CAT scan of the chest to screen for lung cancer because of history of smoking and at that time she was told that she had a lot of coronary arteries calcifications. Patient also is a diabetic with hypertension and high cholesterol. She is an ex smoker, quit 19 years ago. Patient denied any recent fever chills. Patient denies any abdominal pain, no diarrhea. Patient denied any leg swelling. In the emergency department she had a nitroglycerin patch placed in her chest and according to patient that took care of her pain. She was subsequently admitted for cardiac r/o. She had her trops cycled and they remained negative. Had an evaluation by cardiology who added metoprolol 25 mg by mouth twice a day to her regimen. She had an echocardiogram that did not reveal any wall motion abnormalities. Her EF was within normal limits. She did not have any recurrent chest pain or shortness of breath while she was in the hospital. She' ll be discharged home in stable condition. 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 Plan - Discharge Summary Discharge Rx Participant: No New Discharge Prescriptions: New Metoprolol Tartrate [Lopressor] 25 mg PO BID #60 tab Continue metFORMIN HCL 1,000 mg PO BID Lisinopril [Zestril] 20 mg PO DAILY Aspirin 325 mg PO DAILY buPROPion XL [Wellbutrin XL] 300 mg PO DAILY rOPINIRole HCL 4 mg PO HS Omeprazole 40 mg PO DAILY Levothyroxine Sodium [Synthroid] 150 mcg PO DAILY Insulin Degludec [Tresiba Flextouch U-100] 40 unit SQ QAM Insulin Degludec [Tresiba Flextouch U-100] 60 unit SQ HS Dulaglutide [Trulicity] 1.5 mg SQ VASQUEZ Citalopram Hydrobromide [Citalopram HBr] 40 mg PO DAILY Discharge Medication List Aspirin 325 mg PO DAILY 02/06/18 [History] Citalopram Hydrobromide [Citalopram HBr] 40 mg PO DAILY 02/06/18 [History] Dulaglutide [Trulicity] 1.5 mg SQ VASQUEZ 02/06/18 [History] Insulin Degludec [Tresiba Flextouch U-100] 40 unit SQ QAM 02/06/18 [History] Insulin Degludec [Tresiba Flextouch U-100] 60 unit SQ HS 02/06/18 [History] Levothyroxine Sodium [Synthroid] 150 mcg PO DAILY 02/06/18 [History] Lisinopril [Zestril] 20 mg PO DAILY 02/06/18 [History] Omeprazole 40 mg PO DAILY 02/06/18 [History] buPROPion XL [Wellbutrin XL] 300 mg PO DAILY 02/06/18 [History] metFORMIN HCL 1,000 mg PO BID 02/06/18 [History] rOPINIRole HCL 4 mg PO HS 02/06/18 [History] Metoprolol Tartrate [Lopressor] 25 mg PO BID #60 tab 02/08/18 [Rx] Follow up Appointment(s)/Referral(s): Avinash Jean Baptiste MD [Primary Care Provider] - 1-2 days
[2018-02-08] MEDS ORDERED: NON-FORMULARY DRUG (Dulaglutide [Trulicity] 1.5 MG) SQ SCH (14:34)
== END 2018-02-08 11:00 | disposition home or self-care (01) ==
LOC: EC 09:32 → 6SEL 11:37 → 3OBS 18:36
PROVIDERS: ADMIT Internal Medicine; ATTEND Internal Medicine
DX: R07.89 Other chest pain (principal); J45.901 Unspecified asthma with (acute) exacerbation; R94.31 Abnormal electrocardiogram [ECG] [EKG]; R61 Generalized hyperhidrosis; R42 Dizziness and giddiness; R11.0 Nausea; E11.9 Type 2 diabetes mellitus without complications; I10 Essential (primary) hypertension; E03.9 Hypothyroidism, unspecified; K21.9 Gastro-esophageal reflux disease without esophagitis; R93.1 Abnormal findings on diagnostic imaging of heart and coronary circulation; R91.8 Other nonspecific abnormal finding of lung field; K76.0 Fatty (change of) liver, not elsewhere classified; E78.5 Hyperlipidemia, unspecified; F32.9 Major depressive disorder, single episode, unspecified; E66.9 Obesity, unspecified; Z68.38 Body mass index [BMI] 38.0-38.9, adult; G47.33 Obstructive sleep apnea (adult) (pediatric); R79.89 Other specified abnormal findings of blood chemistry; Z99.89 Dependence on other enabling machines and devices; Z79.82 Long term (current) use of aspirin; Z79.4 Long term (current) use of insulin; Z79.890 Hormone replacement therapy; Z79.899 Other long term (current) drug therapy; Z88.0 Allergy status to penicillin; Z90.49 Acquired absence of other specified parts of digestive tract; Z90.710 Acquired absence of both cervix and uterus; Z86.010 Personal history of colon polyps; Z87.891 Personal history of nicotine dependence; Z81.1 Family history of alcohol abuse and dependence; Z83.3 Family history of diabetes mellitus; Z80.0 Family history of malignant neoplasm of digestive organs; Z80.8 Family history of malignant neoplasm of other organs or systems; Z82.49 Family history of ischemic heart disease and other diseases of the circulatory system; Z83.49 Family history of other endocrine, nutritional and metabolic diseases; Z81.8 Family history of other mental and behavioral disorders
CPT/HCPCS: 99291 ×2; 96365 ×2; 96376 ×5; 96366 ×2; 96368; 96375; 36415; 94640 ×3; 93005; 93306; 85379; 80061; 80053 ×2; 82550; 82553; 83735 ×2; 84100; 84484; 85025 ×2; 85610; 85730 ×2; 83036; 71046; G0378 ×3; J1644 ×2; J2920 ×3; J3475

== ENCOUNTER 2018-04-30 10:02 | Day surgery (SDC) | payer BC, OTHER ==
[2018-04-29 09:33] VITALS: BMI 38.0
[~2018-04-30 10:02] MED LIST: LACTATED RINGERS 1,000 ML IV SCH; LIDOCAINE 1% 20 ML VIAL (10MG/ML) FOR IV START INTRADERMA PRN; MIDAZOLAM 2 MG/2 ML VIAL IV PRN
[2018-04-30 11:25] VITALS: RESP 16; TEMP 97.4
[2018-04-30 11:37] LABS: Glucose,Whole Blood 190 mg/dL (75-99)
[2018-04-30] MEDS ORDERED: PROPOFOL 10 MG/ML 20 ML VIAL IV ONE (12:02)
--- NOTE | 2018-04-30 12:23 | P.PCN ---
Date of Procedure: 04/30/18 Procedure(s) Performed: Procedure: Esophagogastroduodenoscopy and biopsy. Preoperative diagnosis: History of nausea, vomiting and right upper quadrant pain. Postoperative diagnosis: 1. Small sliding hiatal hernia with no obvious esophagitis or complicated. 2. Mild antral gastritis. 3. Multiple biopsies obtained from the duodenum, antrum and esophagus. Preparation and sedation: Was provided by anesthesia. Brief clinical history: The patient is a 57-year-old female who was evaluated in the office and scheduled for this examination because of symptoms of right upper quadrant pain, nausea and vomiting of around 1 year duration. The patient had her gallbladder removed several years back. She did not respond to first line therapies. Procedure: With the patient on her left lateral decubitus position and after informed consent and adequate sedation, I passed the Olympus-GIF 160 video upper endoscope through the cricopharyngeus down the esophagus. GE junction was around 41 cm from the incisors and there was a small sliding hiatal hernia with no obvious esophagitis or complicated reflux disease. The endoscope was then passed into the stomach which was insufflated with air and inspected in detail including the retroflex view in the cardia. There was some mottling and erythema in the antrum but no ulcers or erosions. Pyloric channel, duodenal bulb, post bulbar area and descending duodenum appeared within normal limits. Because of her symptoms, I obtained biopsies from the duodenum, antrum and esophagus then the endoscope was withdrawn. The patient tolerated the procedure well. Plan: The patient was reassured. Will await biopsy results. I will see her in follow-up and make additional recommendations based on her course and biopsy results. I will keep you updated on her progress.
[2018-04-30 12:42] VITALS: BP 125/89; PULSE 79
[2018-04-30 12:42] LABS: Glucose,Whole Blood 213 mg/dL (75-99)
== END 2018-04-30 13:34 | disposition home or self-care (01) ==
LOC: ORWHC2ENDO 10:02
DX: K21.0 Gastro-esophageal reflux disease with esophagitis (principal); K29.50 Unspecified chronic gastritis without bleeding; K44.9 Diaphragmatic hernia without obstruction or gangrene; I10 Essential (primary) hypertension; E11.9 Type 2 diabetes mellitus without complications; Z79.84 Long term (current) use of oral hypoglycemic drugs; G47.33 Obstructive sleep apnea (adult) (pediatric); E78.5 Hyperlipidemia, unspecified; E07.9 Disorder of thyroid, unspecified; Z79.890 Hormone replacement therapy; Z79.899 Other long term (current) drug therapy; Z88.0 Allergy status to penicillin
CPT/HCPCS: 88305; 43239; J2704

== ENCOUNTER → 2018-10-01 | Outpatient (CLI) | payer OTHER ==
--- NOTE | 2018-10-01 16:30 | CT ---
EXAMINATION TYPE: CT chest wo con DATE OF EXAM: 10/01/2018 COMPARISON: None HISTORY: multiple lung nodules CT DLP: [address] of the chest was performed with lung and mediastinal window settings submitted. The la ck of contrast limits evaluation of the vascular, mediastinal and parenchymal structures including th e upper abdomen. LUNGS: There is right apical parenchymal scar with associated focal calcification. No suspicious some mass is identified. Small noncalcified nodular density left upper lobe measures 4 mm. Additional nod ular density right upper lobe medially measures 3.7 mm image 27. Left lower lobe pleural-based nodule image 34 measures of 4 mm as well. No evidence for infiltrate. No pleural effusion. No CT evidence of interstitial lung disease. MEDIASTINUM/OUSMANE: Thoracic aorta is of normal caliber with limited evaluation given lack of contrast . The heart is not enlarged. No evidence for mediastinal mass. No lymph nodes greater than 1cm. UPPER ABDOMEN: No significant abnormality is seen. OTHER: No significant other abnormality. IMPRESSION: 1. Right apical parenchymal scar with calcification compatible with remote granulomatous disease. 2. Scattered sub-4 mm pulmonary nodules are nonspecific. Follow-up in one year is advised.
== END | disposition home or self-care (01) ==
LOC: RADCTMAIN 15:39
PROVIDERS: ATTEND Family Medicine
DX: J98.4 Other disorders of lung (principal); R91.8 Other nonspecific abnormal finding of lung field
CPT/HCPCS: 71250

== ENCOUNTER → 2019-12-06 | Outpatient (CLI) | payer BC ==
--- NOTE | 2019-12-06 11:03 | US ---
EXAMINATION TYPE: US abdomen complete DATE OF EXAM: 12/06/2019 COMPARISON: NONE CLINICAL HISTORY: R10.11 Right upper quadrant pain. RUQ pain EXAM MEASUREMENTS: Liver Length: 16.5 cm Gallbladder Wall: Surgically absent cm CBD: .5 cm Spleen: 11.9 cm Right Kidney: 10.9 x 4.7 x 5.9 cm Left Kidney: 11.0 x 5.1 x 4.6 cm Pancreas: Tail obscured by overlying bowel gas Liver: There is increased echogenicity of the hepatic parenchyma with diminished visualization of th e portal triads most commonly relating to hepatic steatosis and limiting evaluation for underlying he patic masses. Gallbladder: Surgically absent Evidence for sonographic Hoffman's sign: No CBD: wnl Spleen: wnl Right Kidney: wnl Left Kidney: wnl Upper IVC: wnl Abd Aorta: wnl The liver is slightly heterogenous. The intrahepatic portion of the IVC and proximal abdominal aorta are within normal limits. Common bile duct is unremarkable. The visualized portions of the pancreas are homogenous. The spleen is unremarkable. Kidneys are symmetric and free of hydronephrosis. No r enal lesions are seen. IMPRESSION: 1. Sonographic findings most commonly related to hepatic steatosis. Correlate with liver function annamarie ts. 2. Status post cholecystectomy.
== END | disposition home or self-care (01) ==
LOC: RADUSWWP 09:13
PROVIDERS: ATTEND Internal Medicine Gastroenterology
DX: K76.0 Fatty (change of) liver, not elsewhere classified (principal); Z90.49 Acquired absence of other specified parts of digestive tract
CPT/HCPCS: 76700

== ENCOUNTER → 2019-12-07 | Outpatient (CLI) | payer BC ==
--- NOTE | 2019-12-07 13:01 | NM ---
EXAMINATION TYPE: NM gastric emptying static DATE OF EXAM: 12/07/2019 COMPARISON: NONE HISTORY: Nausea with vomiting Following administration of 2.1 mCi Tc 99m Sulfur Colloid with 4 oz of liquid eggs, 2 pieces of toast , and 8 oz of water, projection images of the abdomen were obtained 6 minutes post ingestion. Patient Emptying Values 1 Hour 28 % 2 Hours 66 % 3 Hours 75 % 4 Hours 100 % Gastroesophagel reflux: None IMPRESSION: Gastric emptying: Normal Gastroesophageal reflux: None Gastric emptying normal percentage values: 30 minutes: <70% of retention (> 30% emptying) suggests abnormally fast emptying. 60 minutes: <90% retention (>10% emptying) is normal; less than 30% retention (>70% emptying) suggest s abnormally rapid emptying. 90 minutes: <65% retention (> 35% emptying) is normal. 120 minutes: <60% retention (> 40% emptying) is normal. 180 minutes: <30% retention (> 70% emptying) is normal. Gastric emptying T-1/2: Solid: The normal range is 60-105 minutes Liquid only: Normal range is 10-45 minutes. Liquid only-children: At 60 minutes, normal range is 44-58 % . Liquid only-infants: At 60 minutes, normal range is 32-64 %. Additional references: Gastric Emptying Scintigraphy [email or web address]://[email or web address]
== END | disposition home or self-care (01) ==
LOC: RADNMMAIN 06:49
PROVIDERS: ATTEND Internal Medicine Gastroenterology
DX: R11.2 Nausea with vomiting, unspecified (principal)
CPT/HCPCS: 78264; A9541

== ENCOUNTER → 2020-02-16 | Outpatient (CLI) | payer BC ==
--- NOTE | 2020-02-16 16:57 | P.HPBAR ---
Bariatric H&P - History & Physicial H&P Date: 02/16/20 History & Physicial: Visit/CC: Initial VISIT Patient initial contact: Initial weight: 104.78 kg Initial weight in pounds: 231.00 Height: 5 ft 4 in Initial BMI: 39.6 Last weight: Current weight: 104.78 kg Current weight in pounds: 231.00 Current BMI: 39.6 [place] body weight (based on NIH guidelines): 54.431 kg Excess body weight loss: 0.0% The patient is a 59 year-old F who presents for Bariatric Assessment. She is looking the gastric bypass for GERD, DM, sleep apnea, and weigh loss. Her highest weight is present. PCP is Doni Escalante. She robot hysterectomy, total, gallbladder removed. She has history of scar tissue. Recommend diagnostic lysis of adhesions. She has tried weight watchers, protein shakes. Hgb A1C 8.8%. She has histroy of ulcers. No dysphagia. Recommend esophogram. Hiatal hernia. Past Medical History Past Medical History: Asthma, Diabetes Mellitus, GERD/Reflux, Hyperlipidemia, Hypertension, Sleep Apnea/CPAP/BIPAP, Thyroid Disorder Additional Past Medical History / Comment(s): 11/2017 pt states she had a cat scan at [facility] which showed lung masses, coronary blockages and fatty liver-she states she has not followed up with these d/t just getting new employment, , IDDM type II, SALUD with Cpap 12 CFM, colon polyps-benign, hypothyroid History of Any Multi-Drug Resistant Organisms: None Reported Past Surgical History: Cholecystectomy, Hysterectomy, Orthopedic Surgery Additional Past Surgical History / Comment(s): Bilateral carpal tunnel release, bilateral tarsal tunnel releases, bilateral trigger finger releases, colonoscopies and benign polypectomies, EGD Past Anesthesia/Blood Transfusion Reactions: No Reported Reaction Past Psychological History: Depression Additional Psychological History / Comment(s): Pt resides alone. She has 5 dogs. She is independent. She has a glucometer and a Cpap. Smoking Status: Former smoker Past Alcohol Use History: None Reported Additional Past Alcohol Use History / Comment(s): Pt started smoking in 1975 and quit in 1998. Past Drug Use History: None Reported - Past Family History Father Family Medical History: Cancer, Diabetes Mellitus, Hyperlipidemia, Hypertension Additional Family Medical History / Comment(s): Father had colon and skin cance r. He is 83 yrs old. Mother Family Medical History: Coronary Artery Disease (CAD), Hypertension, Thyroid Disorder Additional Family Medical History / Comment(s): Mother had depression, alcoholism. She is 80yrs old. Surgical - Exam Vital Signs Temp Pulse Resp BP 98.2 F 80 16 130/79 02/16/20 16:24 02/16/20 16:24 02/16/20 16:24 02/16/20 16:24 Bariatric Checklist Checklist: Plan: Checklist: EGD: 1. Hiatal hernia: 2. H. Pylori: HgbA1c: Vitamin D: Smoking: Former smoker Primary care physician referral: Doni Escalante Psychiatry clearance: Cardiology clearance: Sleep study: Diet journal: VTE risk score: VTE risk level: Rehab needs at discharge:
[2020-02-18 09:36] VITALS: BP 130/79; PULSE 80; RESP 16; TEMP 98.2; BMI 39.6
== END | disposition home or self-care (01) ==
LOC: BARWHC3 15:51
PROVIDERS: ATTEND Surgery Plastic and Reconstructive Surgery
DX: K21.9 Gastro-esophageal reflux disease without esophagitis (principal); E11.9 Type 2 diabetes mellitus without complications; G47.30 Sleep apnea, unspecified; K44.9 Diaphragmatic hernia without obstruction or gangrene; Z90.710 Acquired absence of both cervix and uterus; Z90.49 Acquired absence of other specified parts of digestive tract; Z87.898 Personal history of other specified conditions; Z87.891 Personal history of nicotine dependence
CPT/HCPCS: 99201

== ENCOUNTER 2020-03-22 06:57 | Day surgery (SDC) | payer BC ==
[2020-03-17 15:15] VITALS: BMI 39.4
[~2020-03-22 06:57] MED LIST changes: -LIDOCAINE 1% 20 ML VIAL (10MG/ML) FOR IV START INTRADERMA PRN; -MIDAZOLAM 2 MG/2 ML VIAL IV PRN
[2020-03-22 07:37] VITALS: TEMP 97
[2020-03-22 07:45] LABS: Glucose,Whole Blood 131 mg/dL (75-99)
[2020-03-22] MEDS ORDERED: LIDOCAINE 1% INJ 10MG/ML (20 ML MDV) ONE (08:26)
[2020-03-22] MEDS ORDERED: PROPOFOL 10 MG/ML 20 ML VIAL IV ONE (08:26)
--- NOTE | 2020-03-22 08:33 | P.GSHP ---
History of Present Illness H&P Date: 03/22/20 CHIEF COMPLAINT: GERD HISTORY OF PRESENT ILLNESS: The patient is a 59-year-old female who presents reports gastroesophageal reflux disease. Upper endoscopy was offered for further evaluation and management. PAST MEDICAL HISTORY: Please see list. PAST SURGICAL HISTORY: Please see list. MEDICATIONS: Please see list. ALLERGIES: Please see list. SOCIAL HISTORY: No illicit drug use FAMILY HISTORY: No reports of Crohn disease or ulcerative colitis. REVIEW OF ORGAN SYSTEMS: CONSTITUTIONAL: No reports of fevers or chills. GI: Denies any blood in stools or constipation. PHYSICAL EXAM: VITAL SIGNS: Stable GENERAL: Well-developed and pleasant in no acute distress. HEENT: No scleral icterus. Extraocular movements grossly intact. Moist buccal mucosa. NECK: Supple without lymphadenopathy. CHEST: Unlabored respirations. Equal bilateral excursions. CARDIOVASCULAR: Regular rate and rhythm. Distal 2+ pulses. ABDOMEN: Soft, nondistended. MUSCULOSKELETAL: No clubbing, cyanosis, or edema. ASSESSMENT: 1. Gastroesophageal reflux disease PLAN: 1. Recommend proceeding with an upper endoscopy Past Medical History Past Medical History: Asthma, Diabetes Mellitus, GERD/Reflux, Hyperlipidemia, Hypertension, Liver Disease, Sleep Apnea/CPAP/BIPAP, Thyroid Disorder Additional Past Medical History / Comment(s): mass in each lung- dr watching, coronary blockages, fatty liver, hx mult ulcers, small hiatal hernia, rosacea, bursitis rt shoulder History of Any Multi-Drug Resistant Organisms: None Reported Past Surgical History: Cholecystectomy, Hysterectomy, Orthopedic Surgery Additional Past Surgical History / Comment(s): Bilateral carpal tunnel release, bilateral tarsal tunnel releases, bilateral trigger finger releases, colonos copies , EGD, surgery for tubal , fatty tumors removed Past Anesthesia/Blood Transfusion Reactions: No Reported Reaction Smoking Status: Former smoker - Past Family History Father Family Medical History: Cancer Additional Family Medical History / Comment(s): colon Mother Family Medical History: Cancer, Hypertension Additional Family Medical History / Comment(s): breast Medications and Allergies Home Medications Medication Instructions Recorded Confirmed Type Omeprazole 40 mg PO DAILY 02/06/18 03/17/20 History buPROPion XL [Wellbutrin XL] 300 mg PO DAILY 02/06/18 03/17/20 History lisinopriL [Zestril] 20 mg PO BID 02/06/18 03/17/20 History Pravastatin Sodium [Pravachol] 80 mg PO HS 04/29/18 03/17/20 History Insulin NPH Hum/Reg Insulin Hm 40 unit SQ BID-W/MEALS 02/18/20 03/17/20 History [Novolin 70-30 Flexpen] Semaglutide [Ozempic] 1 injection SQ VASQUEZ 02/18/20 03/17/20 History ARIPiprazole [Abilify] 5 mg PO DAILY 03/17/20 03/17/20 History Albuterol Inhaler [Ventolin Hfa 1 puff INHALATION DIRECTED PRN 03/17/20 03/17/20 History Inhaler] Levothyroxine Sodium [Levoxyl] 175 mcg PO DAILY 03/17/20 03/17/20 History Solontra 1 applic TOPICAL DIRECTED PRN 03/17/20 03/17/20 History armodafiniL [Armodafinil] 150 mg PO QAM 03/17/20 03/17/20 History Allergies Allergy/AdvReac Type Severity Reaction Status Date / Time Penicillins Allergy Rash/Hives Verified 03/22/20 07:37 Surgical - Exam Vital Signs Temp Pulse Resp BP Pulse Ox 97 F L 70 16 129/59 97 03/22/20 07:34 03/22/20 07:34 03/22/20 07:34 03/22/20 07:34 03/22/20 07:34 Results - Labs Abnormal Lab Results - Last 24 Hours (Table) 03/22/20 Range/Units 07:44 POC Glucose (mg/dL) 131 H (75-99) mg/dL
--- NOTE | 2020-03-22 08:43 | P.PCN ---
Date of Procedure: 03/22/20 Description of Procedure: PREOPERATIVE DIAGNOSIS: Gastroesophageal reflux disease. Morbid obesity. POSTOPERATIVE DIAGNOSIS: Morbid obesity. Gastritis. Gastroesophageal reflux disease. OPERATION: Esophagogastroduodenoscopy with biopsies along antrum. SURGEON: Elif Cordova MD ANESTHESIA: MAC. INDICATIONS: The patient is a 59-year-old female who presents with a history of reflux disease. Benefits and risks of the procedure were described. Informed consent was obtained. DESCRIPTION: The patient was brought into the endoscopy suite and laid in the left lateral decubitus position. An Olympus gastroscope was passed along the posterior oropharynx down to the distal esophagus where the squamocolumnar junction was encountered at 40 cm from the incisors. The stomach was entered and no bile reflux was found. Additional findings are listed below. Biopsies with cold forceps were obtained of the antrum. The first through third portion of the duodenum was examined and unremarkable. Retroflexion of the scope confirmed Hill grade 2 lower esophageal valve. The squamocolumnar junction demonstrated no LA grade A erosive esophagitis. The stomach was desufflated. The patient tolerated the procedure well. FINDINGS: Squamocolumnar junction 40 cm from the incisors. Diaphragmatic hiatus at 40 cm. Hill grade 2 lower esophageal valve. No LA grade A erosive esophagitis. No active duodenitis. Chronic gastritis RECOMMENDATIONS: Upper endoscopy as needed. Plan - Discharge Summary New Discharge Prescriptions: Continue lisinopriL [Zestril] 20 mg PO BID buPROPion XL [Wellbutrin XL] 300 mg PO DAILY Omeprazole 40 mg PO DAILY Pravastatin Sodium [Pravachol] 80 mg PO HS Semaglutide [Ozempic] 1 injection SQ VASQUEZ Insulin NPH Hum/Reg Insulin Hm [Novolin 70-30 Flexpen] 40 unit SQ BID-W/MEALS Albuterol Inhaler [Ventolin Hfa Inhaler] 1 puff INHALATION DIRECTED PRN PRN Reason: sob armodafiniL [Armodafinil] 150 mg PO QAM ARIPiprazole [Abilify] 5 mg PO DAILY Levothyroxine Sodium [Levoxyl] 175 mcg PO DAILY Solontra 1 applic TOPICAL DIRECTED PRN PRN Reason: Rash Discharge Medication List Omeprazole 40 mg PO DAILY 02/06/18 [History] buPROPion XL [Wellbutrin XL] 300 mg PO DAILY 02/06/18 [History] lisinopriL [Zestril] 20 mg PO BID 02/06/18 [History] Pravastatin Sodium [Pravachol] 80 mg PO HS 04/29/18 [History] Insulin NPH Hum/Reg Insulin Hm [Novolin 70-30 Flexpen] 40 unit SQ BID-W/MEALS 0 02/18/20 [History] Semaglutide [Ozempic] 1 injection SQ VASQUEZ 02/18/20 [History] ARIPiprazole [Abilify] 5 mg PO DAILY 03/17/20 [History] Albuterol Inhaler [Ventolin Hfa Inhaler] 1 puff INHALATION DIRECTED PRN 03/17/20 [History] Levothyroxine Sodium [Levoxyl] 175 mcg PO DAILY 03/17/20 [History] Solontra 1 applic TOPICAL DIRECTED PRN 03/17/20 [History] armodafiniL [Armodafinil] 150 mg PO QAM 03/17/20 [History] [facility] [facility] [place] [place] [facility] [place] [facility] Patient Instructions/Handouts: Gastritis (DC), Diet for Stomach Ulcers and Gastritis (ED) Discharge Disposition: HOME SELF-CARE
[2020-03-22 09:21] VITALS: BP 108/74; PULSE 70; RESP 20
== END 2020-03-22 09:19 | disposition home or self-care (01) ==
LOC: ORWHC2ENDO 06:57
PROVIDERS: ATTEND Surgery Plastic and Reconstructive Surgery
DX: K29.50 Unspecified chronic gastritis without bleeding (principal); K21.9 Gastro-esophageal reflux disease without esophagitis; I10 Essential (primary) hypertension; E78.5 Hyperlipidemia, unspecified; E11.9 Type 2 diabetes mellitus without complications; E07.9 Disorder of thyroid, unspecified; J45.909 Unspecified asthma, uncomplicated; K76.9 Liver disease, unspecified; E66.01 Morbid (severe) obesity due to excess calories; G47.30 Sleep apnea, unspecified; Z98.890 Other specified postprocedural states; Z88.0 Allergy status to penicillin; Z87.19 Personal history of other diseases of the digestive system; Z87.891 Personal history of nicotine dependence; Z90.710 Acquired absence of both cervix and uterus; Z90.49 Acquired absence of other specified parts of digestive tract; Z79.890 Hormone replacement therapy; Z79.4 Long term (current) use of insulin; Z79.899 Other long term (current) drug therapy; Z80.0 Family history of malignant neoplasm of digestive organs; Z80.3 Family history of malignant neoplasm of breast; Z82.49 Family history of ischemic heart disease and other diseases of the circulatory system; Z68.41 Body mass index [BMI] 40.0-44.9, adult
CPT/HCPCS: 88305; 43239; J2001; J2704

== ENCOUNTER 2020-06-05 07:12 | Day surgery (SDC) | payer BC ==
[2020-06-02 13:30] VITALS: BMI 38.6
--- NOTE | 2020-06-05 05:07 | P.GSHP ---
History of Present Illness H&P Date: 06/05/20 CHIEF COMPLAINT: History of intra-abdominal adhesions HISTORY OF PRESENT ILLNESS: The patient is a 59-year-old female who presents with history of intra-abdominal adhesions from multiple prior surgeries including increasing abdominal pain. She now presents for diagnostic laparoscopy including lysis of adhesions. PAST MEDICAL HISTORY: Please see list. PAST SURGICAL HISTORY: Please see list. MEDICATIONS: Please see list. ALLERGIES: Please see list. SOCIAL HISTORY: No illicit drug use FAMILY HISTORY: No reports of Crohn disease or ulcerative colitis. REVIEW OF ORGAN SYSTEMS: CONSTITUTIONAL: No reports of fevers or chills. GI: Denies any blood in stools or constipation. PHYSICAL EXAM: VITAL SIGNS: Stable GENERAL: Well-developed pleasant and in no acute distress. HEENT: No scleral icterus. Extraocular movements grossly intact. Moist buccal mucosa. NECK: Supple without lymphadenopathy. CHEST: Unlabored respirations. Equal bilateral excursions. CARDIOVASCULAR: Regular rate and rhythm. Distal 2+ pulses. ABDOMEN: Soft, diffuse abdominal tenderness. No peritonitis. MUSCULOSKELETAL: No clubbing, cyanosis, or edema. ASSESSMENT: 1. Diffuse abdominal pain. 2. History of multiple abdominal surgeries. 3. Intra-abdominal adhesions. PLAN: 1. Robotic lysis of adhesions were described in detail including risk of injury to the intestine, need for further surgery, and open technique. 2. DVT prophylaxis. 3. Antibiotic prophylaxis. Past Medical History Past Medical History: Asthma, Diabetes Mellitus, GERD/Reflux, Hyperlipidemia, Hypertension, Liver Disease, Sleep Apnea/CPAP/BIPAP, Thyroid Disorder Additional Past Medical History / Comment(s): mass in each lung- dr watching, "minor coronary blockages" per pt, fatty liver, hx mult ulcers, small hiatal hernia, rosacea, bursitis rt shoulder,narcolepsy History of Any Multi-Drug Resistant Organisms: None Reported Past Surgical History: Cholecystectomy, Hysterectomy, Orthopedic Surgery Additional Past Surgical History / Comment(s): Bilateral carpal tunnel release, bilateral tarsal tunnel releases, bilateral trigger finger releases, colonoscopies , EGD, surgery for tubal , fatty tumors removed Past Anesthesia/Blood Transfusion Reactions: No Reported Reaction Smoking Status: Former smoker - Past Family History Father Family Medical History: Cancer Additional Family Medical History / Comment(s): colon Mother Family Medical History: Cancer, Hypertension Additional Family Medical History / Comment(s): breast Medications and Allergies Home Medications Medication Instructions Recorded Confirmed Type Omeprazole 40 mg PO DAILY 02/06/18 06/02/20 History buPROPion XL [Wellbutrin XL] 300 mg PO DAILY 02/06/18 06/02/20 History lisinopriL [Zestril] 20 mg PO BID 02/06/18 06/02/20 History Pravastatin Sodium [Pravachol] 80 mg PO HS 04/29/18 06/02/20 History Insulin NPH Hum/Reg Insulin Hm 40 unit SQ BID-W/MEALS 02/18/20 06/02/20 History [Novolin 70-30 Flexpen] Semaglutide [Ozempic] 1 injection SQ VASQUEZ 02/18/20 06/02/20 History ARIPiprazole [Abilify] 5 mg PO DAILY 03/17/20 06/02/20 History Albuterol Inhaler [Ventolin Hfa 1 puff INHALATION DIRECTED PRN 03/17/20 06/02/20 History Inhaler] Levothyroxine Sodium [Levoxyl] 175 mcg PO DAILY 03/17/20 06/02/20 History Solontra 1 applic TOPICAL DIRECTED PRN 03/17/20 06/02/20 History armodafiniL [Armodafinil] 250 mg PO QAM 03/17/20 06/02/20 History Allergies Allergy/AdvReac Type Severity Reaction Status Date / Time Penicillins Allergy Rash/Hives Verified 06/02/20 13:21
[~2020-06-05 07:12] MED LIST changes: +ACETAMINOPHEN TAB 500 MG TAB PO STA; +DEXAMETHASONE SOD PHOSPHATE 10 MG/ML 1 ML VIAL IV ONE; +GABAPENTIN 300 MG CAP PO STA; +HYDROmorphone 0.5 MG/0.5 ML SYRINGE IVP PRN; +MIDAZOLAM 2 MG/2 ML VIAL IV PRN; +ONDANSETRON 4 MG/2 ML VIAL IVP ONE; +SCOPOLAMINE 1.5MG/72HR PATCH TRANSDERM ONE
[2020-06-05 08:09] LABS: Glucose,Whole Blood 105 mg/dL (75-99)
[2020-06-05 08:18] LABS: HCT 39.4 % (34.0-46.0); MCH 30.6 pg (25.0-35.0); MCHC 35.6 g/dL (31.0-37.0); Mean Platelet Volume 7.3; Platelet Count 236 k/uL (150-450); RBC 4.58 m/uL (3.80-5.40); RDW 13.1 % (11.5-15.5); WBC 6.3 k/uL (3.8-10.6)
[2020-06-05] MEDS ORDERED: LIDOCAINE 1% (10MG/ML) FOR IV START INTRADERMA ONE (08:24)
[2020-06-05 08:36] LABS: African American GFR (CKD) >90 (>60 ml/min/1.73 sqM); Anion Gap 8 mmol/L; Blood Urea Nitrogen 16 mg/dL (7-17); Calcium 9.6 mg/dL (8.4-10.2); Carbon Dioxide 27 mmol/L (22-30); Chloride 104 mmol/L (98-107); Glucose 106 mg/dL (74-99); Non-African American GFR(CKD) >90 (>60 ml/min/1.73 sqM); Potassium 4.1 mmol/L (3.5-5.1); Sodium 139 mmol/L (137-145)
[2020-06-05] MEDS ORDERED: LIDOCAINE 1%-EPI 1:100,000 20 ML VIAL SQ ONE (09:06)
[2020-06-05] MEDS ORDERED: MIDAZOLAM 2 MG/2 ML VIAL ONE (09:09)
[2020-06-05] MEDS ORDERED: PROPOFOL 10 MG/ML 20 ML VIAL IV ONE (09:09)
[2020-06-05] MEDS ORDERED: ROCURONIUM 10 MG/ML (10 ML VIAL) IV ONE (09:09)
[2020-06-05] MEDS ORDERED: HEPARIN SODIUM,PORCINE 5,000 UNIT/ML 1 ML VIAL ONE (09:09)
[2020-06-05] MEDS ORDERED: NEOSTIGMINE 1 MG/ML 10 ML VIAL ONE (09:09)
[2020-06-05] MEDS ORDERED: SUCCINYLCHOLINE CHLORIDE 100 MG/5 ML SYR IV ONE (09:09)
[2020-06-05] MEDS ORDERED: fentaNYL (PF) 50 MCG/ML 2 ML AMP ONE (09:09)
[2020-06-05] MEDS ORDERED: GLYCOPYRROLATE 0.2 MG/ML 2 ML VIAL ONE (09:09)
[2020-06-05] MEDS ORDERED: LIDOCAINE 1% INJ 10MG/ML (20 ML MDV) ONE (09:09)
[2020-06-05 10:12] LABS: Glucose,Whole Blood 131 mg/dL (75-99)
[2020-06-05 10:14] VITALS: TEMP 97.1
--- NOTE | 2020-06-05 11:04 | P.OP ---
Date of Procedure: 06/05/20 Description of Procedure: SURGEON: MILA CADE MD PREOPERATIVE DIAGNOSES: 1. Intermittent abdominal pain 2. History of multiple abdominal surgeries 3. Diabetes type 2, insulin-dependent 4. Hypertensive heart disease 5. Hyperlipidemia 6. Depressive disorder 7. Morbid obesity due to excess calories, BMI 39.4 8. Hypothyroidism 9. Obstructive sleep apnea 10. Gastroesophageal reflux disease 11. Asthma POSTOPERATIVE DIAGNOSES: 1. Intermittent abdominal pain due to peritoneal adhesions 2. History of multiple abdominal surgeries 3. Diabetes type 2, insulin-dependent 4. Hypertensive heart disease 5. Hyperlipidemia 6. Depressive disorder 7. Morbid obesity due to excess calories, BMI 39.4 8. Hypothyroidism 9. Obstructive sleep apnea 10. Gastroesophageal reflux disease 11. Asthma OPERATION: 1. Robotic-assisted da Chirag Xi laparoscopic with lysis of adhesions ESTIMATED BLOOD LOSS: 5 mL. SPECIMENS REMOVED: None. COMPLICATIONS: None. OPERATIVE FINDINGS: 1. No inguinal hernias identified 2. Greater omentum to abdominal wall adhesion of the pelvis 3. Small bowel unremarkable without dilation 4. No abdominal wall hernias identified INDICATIONS: The patient is a 45-year-old female who presents with intermittent abdominal pain. Surgical intervention with diagnostic laparoscopy, lysis of adhesions and possible left inguinal hernia repair were described. Informed consent was obtained. Robotic assisted laparoscopic approach was described. Benefits and risks of the procedure including but not limited to bleeding, infection was described. Informed consent was obtained. DESCRIPTION OF PROCEDURE: Patient was brought to the operating room, placed in supine position. After general induction, the abdomen had been prepped and draped in standard sterile fashion. The robotic da Chirag XI system was primed. After a timeout protocol was performed, the patient had been prepped and draped in standard sterile fashion. The robot was docked along the left lateral abdomen. Please note prior to docking of the robot; however, a 5 mm 0 degrees laparoscopic trocar entry was performed along the left upper quadrant. Next, three 8 mm robotic ports were placed along the left lateral abdominal wall abdomen. Trochars were placed at least 10 to 15 cm away from the target anatomy. Instruments including graspers and scissors with cautery were interchanged by the claims assistant. I had sat at the console. Greater omental adhesion to the lower abdominal wall at the pelvis was identified and sharply divided using Endo scissors with cautery. Hemostasis was checked. The sigmoid colon was highly redundant. No large or small bowel obstruction was identified. The robot was undocked. All pneumoperitoneum and instruments were evacuated from the abdominal cavity. The incisions were reapproximated using 4-0 Monocryl in an interrupted subcu ticular fashion. Please note along the trocar sites, local anesthetic was placed as a field block prior to insertion of all instruments. Exofin was applied to the skin. At the end of the procedure needle, sponge, and instrument count had been verified correct by the certified surgical assistant. The patient was transferred to postanesthesia care unit in stable condition. Plan - Discharge Summary Discharge Rx Participant: No New Discharge Prescriptions: New Ibuprofen [Motrin] 600 mg PO Q8HR PRN #30 tab PRN Reason: pain Acetaminophen Tab [Tylenol Tab] 1,000 mg PO Q6HR PRN #30 tablet PRN Reason: Pain Continue lisinopriL [Zestril] 20 mg PO BID buPROPion XL [Wellbutrin XL] 300 mg PO DAILY Omeprazole 40 mg PO DAILY Pravastatin Sodium [Pravachol] 80 mg PO HS Semaglutide [Ozempic] 1 injection SQ VASQUEZ Insulin NPH Hum/Reg Insulin Hm [Novolin 70-30 Flexpen] 40 unit SQ BID-W/MEALS Albuterol Inhaler [Ventolin Hfa Inhaler] 1 puff INHALATION DIRECTED PRN PRN Reason: sob armodafiniL [Armodafinil] 250 mg PO QAM ARIPiprazole [Abilify] 5 mg PO DAILY Levothyroxine Sodium [Levoxyl] 175 mcg PO DAILY Solontra 1 applic TOPICAL DIRECTED PRN PRN Reason: Rash Discharge Medication List Omeprazole 40 mg PO DAILY 02/06/18 [History] buPROPion XL [Wellbutrin XL] 300 mg PO DAILY 02/06/18 [History] lisinopriL [Zestril] 20 mg PO BID 02/06/18 [History] Pravastatin Sodium [Pravachol] 80 mg PO HS 04/29/18 [History] Insulin NPH Hum/Reg Insulin Hm [Novolin 70-30 Flexpen] 40 unit SQ BID-W/MEALS 02/18/20 [History] Semaglutide [Ozempic] 1 injection SQ VASQUEZ 02/18/20 [History] ARIPiprazole [Abilify] 5 mg PO DAILY 03/17/20 [History] Albuterol Inhaler [Ventolin Hfa Inhaler] 1 puff INHALATION DIRECTED PRN 03/17/20 [History] Levothyroxine Sodium [Levoxyl] 175 mcg PO DAILY 03/17/20 [History] Solontra 1 applic TOPICAL DIRECTED PRN 03/17/20 [History] armodafiniL [Armodafinil] 250 mg PO QAM 03/17/20 [History] Acetaminophen Tab [Tylenol Tab] 1,000 mg PO Q6HR PRN #30 tablet 06/05/20 [Rx] Ibuprofen [Motrin] 600 mg PO Q8HR PRN #30 tab 06/05/20 [Rx] Follow up Appointment(s)/Referral(s): [facility] [[facility]-STAFF] - 06/07/20 (FOLLOW UP WITH DR CADE ON 06/07/20 AT ) Patient Instructions/Handouts: *Surgery [facility] - (Anesthesia) Discharge Instructions Outpatient Surgery, Lysis of Abdominal Adhesions (DC) Activity/Diet/Wound Care/Special Instructions: No lifting over 10 pounds in 2 weeks until Jun 19. May shower. No bath tub soaks for two weeks until Jun 19. Diet as tolerated. No driving while on narcotics. Use Tylenol and ibuprofen/Aleve scheduled for the next 24-48 hours for best pain relief. Use ice along incisions for the today to prevent swelling. Discharge Disposition: HOME SELF-CARE
[2020-06-05 11:27] VITALS: BP 145/70; PULSE 78; RESP 20
== END 2020-06-05 11:32 | disposition home or self-care (01) ==
LOC: OR 07:12
PROVIDERS: ATTEND Surgery Plastic and Reconstructive Surgery
DX: K66.0 Peritoneal adhesions (postprocedural) (postinfection) (principal); E11.9 Type 2 diabetes mellitus without complications; Q43.8 Other specified congenital malformations of intestine; K21.9 Gastro-esophageal reflux disease without esophagitis; E78.5 Hyperlipidemia, unspecified; I11.9 Hypertensive heart disease without heart failure; G47.33 Obstructive sleep apnea (adult) (pediatric); Z99.89 Dependence on other enabling machines and devices; R91.8 Other nonspecific abnormal finding of lung field; I25.10 Atherosclerotic heart disease of native coronary artery without angina pectoris; E03.9 Hypothyroidism, unspecified; K76.0 Fatty (change of) liver, not elsewhere classified; K44.9 Diaphragmatic hernia without obstruction or gangrene; J45.909 Unspecified asthma, uncomplicated; F32.9 Major depressive disorder, single episode, unspecified; E66.01 Morbid (severe) obesity due to excess calories; Z68.39 Body mass index [BMI] 39.0-39.9, adult; L71.9 Rosacea, unspecified; M75.51 Bursitis of right shoulder; G47.419 Narcolepsy without cataplexy; Z90.49 Acquired absence of other specified parts of digestive tract; Z90.710 Acquired absence of both cervix and uterus; Z98.890 Other specified postprocedural states; Z87.891 Personal history of nicotine dependence; Z80.0 Family history of malignant neoplasm of digestive organs; Z80.3 Family history of malignant neoplasm of breast; Z82.49 Family history of ischemic heart disease and other diseases of the circulatory system; Z79.890 Hormone replacement therapy; Z79.4 Long term (current) use of insulin; Z79.899 Other long term (current) drug therapy; Z88.0 Allergy status to penicillin
CPT/HCPCS: 80048; 85027; 49329; J2250; J1644; J1100; J2710; J0690; J2405; J2001; J3010; J0330; J2704

== ENCOUNTER → 2020-06-07 | Outpatient (CLI) | payer BC ==
[2020-06-07 14:40] VITALS: BP 137/83; PULSE 87; RESP 16; TEMP 98; BMI 39.4
--- NOTE | 2020-06-07 14:59 | P.PN ---
Subjective Progress Note Date: 06/07/20 DATE OF SERVICE: 06/07/2020 CHIEF COMPLAINT: Morbid obesity HISTORY OF PRESENT ILLNESS: Katie Dougherty is a 59-year-old female who is status post lysis of adhesions, 06/05/20. She is POD 2. She had extensive lysis of adhesions. Her pain is well controlled. She is looking into the gastric bypass. She is enrolled in supervised medical weight loss. At height of 5 feet 4 inches, her ideal body weight is 144 pounds. She comes in 230 pounds from 233 pounds, 1 month. She has lost 3 pounds in 1 month. Her BMI 40.0 is down to 39.5. She is 86 pounds overweight. PHYSICAL EXAM: VITAL SIGNS: Height 5 foot 4 inches, weight 230 pounds. BMI 39.5 Vital Signs Temp 98 F 06/07/20 14:37 Pulse 87 06/07/20 14:37 Resp 16 06/07/20 14:37 BP 137/83 06/07/20 14:37 Pulse Ox GENERAL: Well-developed in no acute distress. HEENT: No scleral icterus. Extraocular movements grossly intact. Hears conversational speech. No nasal drainage. NECK: Supple without lymphadenopathy. CHEST: Nonlabored respirations with equal bilateral excursions. CARDIOVASCULAR: Regular rate and regular rhythm. Distal 2+ pulses. ABDOMEN: Obese. No cellulitis. Incision is intact. MUSCULOSKELETAL: No clubbing, cyanosis. NEURO: No focal or lateralizing signs. Cranial nerves 2 through 12 grossly withi n normal limits. PSYCH: Appropriate affect. Alert and oriented to person, place and time. SKIN: Good skin turgor. Well perfused. ASSESSMENT: 1. Morbid obesity due to excess calories 2. Body mass index of 40.0, initial 3. Depressive disorder 4. Hypertensive heart disease 5. Hypothyroidism 6. Diabetes type II, insulin dependent 7. Hyperlipidemia 8. Asthma 9. Gastroesophageal reflux disease 10. Fatty liver disease 11. Obstructive sleep apnea 12. Lung mass 13. Bursitis 14. Rosacea 15. Vitamin D deficiency 16. Status post lysis of adhesions PLAN: 1. She is still looking into the gastric bypass. 2. She is pending 1 more month for supervised medical weight loss. 3. Recommend re-check Hgb A1C 4. Will need time off 4 weeks reviewed. Objective - Vital Signs Vital signs: Vital Signs Temp 98 F 06/07/20 14:37 Pulse 87 06/07/20 14:37 Resp 16 06/07/20 14:37 BP 137/83 06/07/20 14:37 Pulse Ox Intake & Output 06/06/20 06/07/20 06/07/20 18:59 06:59 18:59 Weight 104.326 kg
== END | disposition home or self-care (01) ==
LOC: BARWHC3 14:25
PROVIDERS: ATTEND Surgery Plastic and Reconstructive Surgery
DX: E66.01 Morbid (severe) obesity due to excess calories (principal); F32.9 Major depressive disorder, single episode, unspecified; I11.9 Hypertensive heart disease without heart failure; E03.9 Hypothyroidism, unspecified; E11.9 Type 2 diabetes mellitus without complications; E78.5 Hyperlipidemia, unspecified; J45.909 Unspecified asthma, uncomplicated; K21.9 Gastro-esophageal reflux disease without esophagitis; K76.0 Fatty (change of) liver, not elsewhere classified; G47.33 Obstructive sleep apnea (adult) (pediatric); R91.8 Other nonspecific abnormal finding of lung field; M71.9 Bursopathy, unspecified; L71.9 Rosacea, unspecified; E55.9 Vitamin D deficiency, unspecified; Z68.41 Body mass index [BMI] 40.0-44.9, adult; Z79.4 Long term (current) use of insulin; Z98.890 Other specified postprocedural states
CPT/HCPCS: 99211

== ENCOUNTER → 2020-06-12 | Outpatient (CLI) | payer BC ==
[2020-06-12 15:13] VITALS: BMI 39.5
== END | disposition home or self-care (01) ==
LOC: BARWHC3 08:34
PROVIDERS: ATTEND Surgery Plastic and Reconstructive Surgery
DX: E66.01 Morbid (severe) obesity due to excess calories (principal); Z71.3 Dietary counseling and surveillance; Z68.39 Body mass index [BMI] 39.0-39.9, adult
CPT/HCPCS: 97804

== ENCOUNTER 2020-07-03 07:55 | Inpatient (IN) | payer BC ==
--- NOTE | 2020-07-03 05:39 | P.GSHP ---
History of Present Illness H&P Date: 07/03/20 CHIEF COMPLAINT: Morbid obesity HISTORY OF PRESENT ILLNESS: Katie Dougherty is a 59-year-old female who comes with lifelong morbid obesity. As result of morbid obesity, she has developed insulin-dependent diabetes type 2, hypertensive heart disease, obstructive sleep apnea, hyperlipidemia, osteoarthritis of the hips and knees. She has completed medical supervised weight loss. She completed medical including cardiac assessment. She has completed psychological risk assessment. All surgical opti ons were reviewed. She elected for gastric bypass. At height of 5 feet 4 inches, her ideal body weight is 144 pounds. She comes in 220 pounds. Her body mass index is 37.8 She is 76 pounds overweight. PAST MEDICAL HISTORY: 1. Morbid obesity due to excess calories 2. Body mass index of 37.8 3. Osteoarthritis of the knees. 4. Osteoarthritis of the lower back. 5. Hypertensive heart disease. 6. Gastroesophageal reflux disease 7. Hyperlipidemia 8. Obstructive sleep apnea 9. Diabetes type 2, insulin dependent 10. Fatty liver disease 11. Pulmonary nodules 12. Hypothyroidism 13. Narcolepsy 14. Coronary artery disease 15. Depressive disorder PAST SURGICAL HISTORY: 1. Cholecystectomy 2. Hysterectomy 3. Lysis of adhesions 4. Bilateral carpal tunnel release 5. Colonoscopy 6. Upper endoscopy HOME MEDICATIONS: Home Medications Medication Instructions Recorded Confirmed Omeprazole 40 mg PO DAILY 02/06/18 06/28/20 buPROPion XL [Wellbutrin XL] 300 mg PO DAILY 02/06/18 06/28/20 lisinopriL [Zestril] 20 mg PO BID 02/06/18 06/28/20 Pravastatin Sodium [Pravachol] 80 mg PO HS 04/29/18 06/28/20 Insulin NPH Hum/Reg Insulin Hm 40 unit SQ BID-W/MEALS 02/18/20 06/28/20 [Novolin 70-30 Flexpen] Semaglutide [Ozempic] 1 injection SQ VASQUEZ 02/18/20 06/28/20 ARIPiprazole [Abilify] 5 mg PO DAILY 03/17/20 06/28/20 Albuterol Inhaler [Ventolin Hfa 1 puff INHALATION DIRECTED PRN 03/17/20 06/28/20 Inhaler] Levothyroxine Sodium [Levoxyl] 175 mcg PO DAILY 08/07/20 11/18/20 Solontra 1 applic TOPICAL DIRECTED PRN 03/17/20 06/28/20 armodafiniL [Armodafinil] 250 mg PO QAM 03/17/20 06/28/20 Previous Rx's Medication Instructions Recorded Acetaminophen Tab [Tylenol Tab] 1,000 mg PO Q6HR PRN #30 tablet 06/05/20 ALLERGIES: Allergies Allergy/AdvReac Type Severity Reaction Status Date / Time Penicillins Allergy Rash/Hives Verified 06/28/20 11:30 SOCIAL HISTORY: Past tobacco use. FAMILY HISTORY: No family history of ulcerative colitis disease or Crohn's disease. Family history of morbid obesity. No lupus in the family. No reports of stomach or esophageal cancer. REVIEW OF ORGAN SYSTEMS: CONSTITUTIONAL: At height of 5 feet 4 inches, her ideal body weight is 144 pounds. She comes in 220 pounds. Her body mass index is 37.8 She is 76 pounds overweight. HEENT: Denies any active troubles with vision or hearing. ENDOCRINE: Has diabetes. Has hypothyroidism. CARDIOVASCULAR: Past reports of palpitations or heart attacks or chest pain. RESPIRATORY: Has daytime somnolence. GASTROINTESTINAL: Denies any bright red blood per rectum. Has gastroesophageal reflux disease. MUSCULOSKELETAL: Has lower back pain and joint pain. Has osteoarthritis of the knees. NEURO: No headaches. No seizure disorders. PSYCH: Has depression. No suicidal ideation. RHEUMATOLOGIC: No lupus. No rheumatoid arthritis. HEMATOLOGIC: Denies any abnormal bleeding or bruising. No personal history of DVTs. SKIN: Has rash. No skin cancer. PHYSICAL EXAM: VITAL SIGNS: Height 5 foot 3.75 inches, weight 219 pounds. BMI 38.0 GENERAL: Well-developed in no acute distress. HEENT: No scleral icterus. Extraocular movements grossly intact. Hears conversational speech. No nasal drainage. NECK: Supple without lymphadenopathy. CHEST: Nonlabored respirations with equal bilateral excursions. CARDIOVASCULAR: Regular rate and regular rhythm. Distal 2+ pulses. ABDOMEN: Obese, soft, nontender, nondistended. MUSCULOSKELETAL: No clubbing, cyanosis. NEURO: No focal or lateralizing signs. Cranial nerves 2 through 12 grossly within normal limits. PSYCH: Appropriate affect. Alert and oriented to person, place and time. SKIN: Good skin turgor. Well perfused. ASSESSMENT: 1. Morbid obesity due to excess calories 2. Body mass index of 37.8 3. Osteoarthritis of the knees. 4. Osteoarthritis of the lower back. 5. Hypertensive heart disease. 6. Gastroesophageal reflux disease 7. Hyperlipidemia 8. Obstructive sleep apnea 9. Diabetes type 2, insulin dependent 10. Fatty liver disease 11. Pulmonary nodules 12. Hypothyroidism 13. Narcolepsy 14. Coronary artery disease 15. Depressive disorder PLAN: 1. Bariatric options between a sleeve, band and a Aminata-en-Y gastric bypass were reviewed in detail. The patient elected for a gastric bypass. Robotic assisted approach described. 2. The [place] [facility] Data was also reviewed with benefits and risks as described. 3. An 8 page second-generation bariatric consent form was reviewed in detail including potential of bleeding, infection, leaks, adequate weight loss, nutritional deficiencies which the patient demonstrated understanding of the risks. 4. A 2 week high-protein low caloric 800 kcal diet described to address hepatomegaly. 5. Preoperative labs including complete metabolic panel and CBC with type and screen recommended. 6. DVT prophylaxis per [place] [facility]. 7. Antibiotic prophylaxis. 8. Inpatient hospitalization anticipated for more than 2 nights. 9. All questions and concerns were addressed with the patient. 10. She is at elevated risk for perioperative complications secondary to pre- existing diabetes type 2, obstructive sleep apnea, pre-existing coronary artery disease. 11. Overall, patient has expressed understanding of bariatric care including postoperative diet and commitment of lifestyle. Patient should benefit from surgical intervention for correction of her morbid obesity. 12. Will need repeat hemoglobin A1c Past Medical History Past Medical History: Asthma, Diabetes Mellitus, GERD/Reflux, Hyperlipidemia, Hypertension, Liver Disease, Sleep Apnea/CPAP/BIPAP, Thyroid Disorder Additional Past Medical History / Comment(s): mass in each lung- dr watching, "minor coronary blockages" per pt, fatty liver, hx mult ulcers, small hiatal hernia, rosacea, bursitis rt shoulder,narcolepsy History of Any Multi-Drug Resistant Organisms: None Reported Past Surgical History: Cholecystectomy, Hysterectomy, Orthopedic Surgery Additional Past Surgical History / Comment(s): Bilateral carpal tunnel release, bilateral tarsal tunnel releases, bilateral trigger finger releases, colonoscopies , EGD, surgery for tubal , fatty tumors removed, sx for peritoneal adhesions Past Anesthesia/Blood Transfusion Reactions: No Reported Reaction Smoking Status: Former smoker - Past Family History Father Family Medical History: Cancer Additional Family Medical History / Comment(s): colon Mother Family Medical History: Cancer, Hypertension Additional Family Medical History / Comment(s): breast Medications and Allergies Home Medications Medication Instructions Recorded Confirmed Type Omeprazole 40 mg PO DAILY 02/06/18 06/28/20 History buPROPion XL [Wellbutrin XL] 300 mg PO DAILY 02/06/18 06/28/20 History lisinopriL [Zestril] 20 mg PO BID 02/06/18 06/28/20 History Pravastatin Sodium [Pravachol] 80 mg PO HS 04/29/18 06/28/20 History Insulin NPH Hum/Reg Insulin Hm 40 unit SQ BID-W/MEALS 02/18/20 06/28/20 History [Novolin 70-30 Flexpen] Semaglutide [Ozempic] 1 injection SQ VASQUEZ 02/18/20 06/28/20 History ARIPiprazole [Abilify] 5 mg PO DAILY 03/17/20 06/28/20 History Albuterol Inhaler [Ventolin Hfa 1 puff INHALATION DIRECTED PRN 03/17/20 06/28/20 History Inhaler] Levothyroxine Sodium [Levoxyl] 175 mcg PO DAILY 03/17/20 06/28/20 History Solontra 1 applic TOPICAL DIRECTED PRN 03/17/20 06/28/20 History armodafiniL [Armodafinil] 250 mg PO QAM 03/17/20 06/28/20 History Acetaminophen Tab [Tylenol Tab] 1,000 mg PO Q6HR PRN #30 tablet 06/05/20 06/28/20 Rx Allergies Allergy/AdvReac Type Severity Reaction Status Date / Time Penicillins Allergy Rash/Hives Verified 06/28/20 11:30
[~2020-07-03 07:55] MED LIST changes: +CHLORHEXIDINE GLUCONATE 15 ML CUP MUCOUS MEM ONE; -DEXAMETHASONE SOD PHOSPHATE 10 MG/ML 1 ML VIAL IV ONE; +DEXAMETHASONE SOD PHOSPHATE 4 MG/ML 1 ML VIAL IV ONE; +ENOXAPARIN 40 MG/0.4 ML SYRINGE SQ STA; -HYDROmorphone 0.5 MG/0.5 ML SYRINGE IVP PRN; -LACTATED RINGERS 1,000 ML IV SCH; -MIDAZOLAM 2 MG/2 ML VIAL IV PRN; +PANTOPRAZOLE 40 MG/10 ML VIAL IV STA; -SCOPOLAMINE 1.5MG/72HR PATCH TRANSDERM ONE; +SCOPOLAMINE 1.5MG/72HR PATCH TRANSDERM STA
[2020-07-03] MEDS: LACTATED RINGERS 1,000 ML IV SCH (08:33)
[2020-07-03 08:43] LABS: Glucose,Whole Blood 234 mg/dL (75-99)
[2020-07-03] MEDS ORDERED: MIDAZOLAM 2 MG/2 ML VIAL IV ONE (08:55)
[2020-07-03 09:15] LABS: ALT 31 U/L (4-34); AST 34 U/L (14-36); African American GFR (CKD) >90 (>60 ml/min/1.73 sqM); Albumin 4.4 g/dL (3.5-5.0); Alkaline Phosphatase 78 U/L (38-126); Anion Gap 9 mmol/L; Blood Urea Nitrogen 18 mg/dL (7-17); Calcium 9.3 mg/dL (8.4-10.2); Carbon Dioxide 22 mmol/L (22-30); Chloride 106 mmol/L (98-107); Glucose 223 mg/dL (74-99); Non-African American GFR(CKD) >90 (>60 ml/min/1.73 sqM); Potassium 4.7 mmol/L (3.5-5.1); Sodium 137 mmol/L (137-145); Total Bilirubin 0.9 mg/dL (0.2-1.3)
[2020-07-03] MEDS ORDERED: GLYCOPYRROLATE 0.2 MG/ML 2 ML VIAL ONE (09:22)
[2020-07-03] MEDS ORDERED: PROPOFOL 10 MG/ML 20 ML VIAL IV ONE (09:22)
[2020-07-03] MEDS ORDERED: fentaNYL (PF) 50 MCG/ML 2 ML AMP ONE (09:22)
[2020-07-03] MEDS ORDERED: KETAMINE 10 MG/ML 20 ML VIAL ONE (09:22)
[2020-07-03] MEDS ORDERED: MIDAZOLAM 2 MG/2 ML VIAL ONE (09:22)
[2020-07-03] MEDS ORDERED: PHENYLEPHRINE-0.9% NACL SYG 1 MG/10 ML SYRINGE ONE (09:22)
[2020-07-03] MEDS ORDERED: WATER FOR INJECTION, STERILE 10 ML VIAL IV ONE (09:22)
[2020-07-03] MEDS ORDERED: NEOSTIGMINE 1 MG/ML 10 ML VIAL ONE (09:22)
[2020-07-03] MEDS ORDERED: SUCCINYLCHOLINE CHLORIDE 100 MG/5 ML SYR IV ONE (09:22)
[2020-07-03] MEDS ORDERED: ROCURONIUM 10 MG/ML (10 ML VIAL) IV ONE (09:22)
[2020-07-03] MEDS ORDERED: LIDOCAINE 1% INJ 10MG/ML (20 ML MDV) ONE (09:22)
[2020-07-03] MEDS ORDERED: ePHEDrine SULFATE/0.9% NACL/PF 50 MG/5 ML SYRINGE IV ONE (09:22)
[2020-07-03] MEDS ORDERED: LIDOCAINE 1%-EPI 1:100,000 20 ML VIAL SQ ONE (09:54)
[2020-07-03] MEDS ORDERED: LACTATED RINGERS 1,000 ML IV ONE ×2 (10:20→12:13)
[2020-07-03] MEDS: HYDROmorphone 0.5 MG/0.5 ML SYRINGE IVP PRN ×4 (12:42→13:52)
[2020-07-03 12:50] LABS: Glucose,Whole Blood 316 mg/dL (75-99)
[2020-07-03] MEDS ORDERED: INSULIN ASPART (NovoLOG) 100 UNIT/ML VIAL SQ ONE (12:53)
[2020-07-03] MEDS ORDERED: HYOSCYAMINE ORAL DROPS 1.875 MG/15 ML BOTTLE PO PRN (12:56)
[2020-07-03] MEDS ORDERED: NALOXONE 0.4 MG/ML 1 ML VIAL IV PRN (12:56)
[2020-07-03] MEDS ORDERED: diphenhydrAMINE 50 MG/ML 1 ML VIAL IVP PRN (12:56)
[2020-07-03] MEDS ORDERED: ALBUTEROL NEBULIZED 2.5 MG/3 ML INHALATION PRN (12:59)
--- NOTE | 2020-07-03 13:02 | P.OP ---
Date of Procedure: 07/03/20 Description of Procedure: SURGEON: MILA CADE MD PREOPERATIVE DIAGNOSES: 1. Morbid obesity due to excess calories 2. Body mass index of 37.8 3. Osteoarthritis of the knees. 4. Osteoarthritis of the lower back. 5. Hypertensive heart disease. 6. Gastroesophageal reflux disease 7. Hyperlipidemia 8. Obstructive sleep apnea 9. Diabetes type 2, insulin dependent 10. Fatty liver disease 11. Pulmonary nodules 12. Hypothyroidism 13. Narcolepsy 14. Coronary artery disease 15. Depressive disorder POSTOPERATIVE DIAGNOSES: 1. Morbid obesity due to excess calories 2. Body mass index of 37.8 3. Osteoarthritis of the knees. 4. Osteoarthritis of the lower back. 5. Hypertensive heart disease. 6. Gastroesophageal reflux disease 7. Hyperlipidemia 8. Obstructive sleep apnea 9. Diabetes type 2, insulin dependent 10. Fatty liver disease 11. Pulmonary nodules 12. Hypothyroidism 13. Narcolepsy 14. Coronary artery disease 15. Depressive disorder OPERATION: 1. Robotic assisted da Chirag Xi laparoscopic Marlen-en-Y gastric bypass, 100 cm antecolic antegastric Marlen limb, with 25 mm EEA. 2. Intraoperative esophagogastrojejunoscopy. ANESTHESIA: GETA and local ESTIMATED BLOOD LOSS: 5 mL SPECIMENS REMOVED: None. COMPLICATIONS: NONE. Operative Findings: 1. Biliopancreatic limb 60 cm 2. Bypass performed using 100 cm marlen limb 3. Julio defect and jejunojejunostomy defects closed using 2-0 V LOC 4. Leak test negative with gastrojejunal anastomosis patent and hemostatic. 5. Reinforcement sutures were placed along the gastrojejunal anastomosis at 9:00 and 3:00 6. Liver surface unremarkable INDICATIONS: Katie Dougherty is a 59-year-old female who comes with lifelong morbid obesity. As result of morbid obesity, she has developed insulin-dependent diabetes type 2, hypertensive heart disease, obstructive sleep apnea, hyperlipidemia, osteoarthritis of the hips and knees. She has completed medical supervised weight loss. She completed medical including cardiac assessment. She has completed psychological risk assessment. All surgical options were reviewed. She elected for gastric bypass. At height of 5 feet 4 inches, her ideal body weight is 144 pounds. She comes in 220 pounds. Her body mass index is 37.8 She is 76 pounds overweight. A second- generation bariatric consent form was described in detail including the possibility of protein malnutrition, leaks, gastrojejunal stricture, venous thrombosis, need for further surgery for which she demonstrated understanding. Benefits and risks of the procedure were described at length. Informed consent was obtained. DESCRIPTION: The patient was brought into the operating room theater. She was placed supine. She had received Lovenox subcutaneously for DVT prophylaxis. Additionally she Peridex oral solution as an oral decontaminant was placed per anesthesia. After general induction, the abdomen was prepped and draped in standard sterile fashion. Ioban draping was placed along the abdomen. Sandoval catheter was placed A robotic da Chirag Xi system was prepped and primed. Incisions were proposed at 15 cm from the xiphoid. Proposed port sites were marked with indelible marker along the anterior axillary line bilaterally, mid clavicular line bilaterally with each port marked 10 cm from each other. The robotic stapler port was marked for the right midclavicular line including along the left midclavicular line. A 5 mm 0 degrees laparoscopic trocar entry was performed along the left upper quadrant. The abdomen was insufflated to 15 mmHg pressure, which she tolerated well. Diagnostic laparoscopy demonstrated no injury to bowel, viscera, or mesentery. The liver surface was unremarkable. An 8 mm camera port was placed left lateral to the umbilicus at the epigastrium, 15 cm distal to the xiphoid. Next, 12-mm robot stapler port was placed along the right mid abdomen. An 12 mm port was exchanged along the left upper quadrant. An 8 mm port was placed on the left lateral abdominal wall under direct visualization Please note that the ports were placed 18 to 20 cm away from the target anatomy of the stomach. Care was taken to check that each robotic arm was safely away from collision with the bed or the patient. At the epigastrium, a medium sized Joyce liver retractor was placed under direct visualization with the Iron Metal Moulder placed under the right shoulder of the patient. The patient was repositioned in reverse Trendelenburg position at 21-degrees af ter lowering the bed. The robot was docked over the patient. Using grasper for arm 3, a grasper for arm 1, including vessel sealer for arm 4, the robotic system was docked and primed as described. Instruments were interchanged by the residential living assistant including endoscissors, the needle bus driver supervisor, and stapler. I had sat at the console. Next, the transverse mesocolon was reflected into the upper abdomen after dividing the mesentery and preparing for the jejunojejunostomy portion of the case. The ligament of Treitz was identified and measured 60 cm antegrade and marked using 3-0 Silk. The jejunum was divided at the 60 cm point using 60-mm blue loads above the suture measurement. The biliopancreatic limb was held in place. The Marlen limb was measured 100 cm in an antegrade fashion to avoid tension along the proposed gastrojejunal anastomosis. At 100 cm along the anti-mesenteric border of the Marlen limb, a jejunojejunostomy was proposed whereby enterotomies were created along the biliopancreatic limb including the Marlen limb using a Bovie cautery. A stay suture of 3-0 Slik was placed to align and create the anastomosis. The enterotomies along the anti-mesenteric borders were created followed by unidirectional fire from the patient's right side using 60 mm blue loads Smart technology robotic stapler. The jejunojejunostomy was found to be hemostatic. The enterotomy was closed after horizontal mattress stitch of 3-0 silk used to elevate the enterotomy followed by closure with the robotic stapler blue load. The jejunal limb was temporarily tacked along the left upper quadrant. Attention was now brought to the creation of the gastrojejunostomy. Along the lesser curvature of the stomach, dissection was made along the retrogastric space to allow first firing of the robotic staple. Green loads of 60 mm staplers were used to divide the stomach to create the gastric pouch. The patient was then prepared for placement of a Orvil. The patient was Mallampati 2. A 25-mm Orvil was selected for placement by the nurse channel worker. The Orvil tubing was placed anterior to the staple line of the gastric pouch and brought out through the left inferior lateral port. I re-scrubbed into the case. The robotic arms were temporarily undocked. The Orvil was then carefully and successfully navigated with the help of the nurse channel worker into the gastric pouch. The sutures were identified and divided. The tubing was from the 25 mm anvil. As the Orvil had been placed, the blind jejunal limb was brought proximally into the upper abdomen. No torsion was found upon the Marlen limb. No tension was identified as the limb was brought along the upper abdomen. The blind jejunal limb was previously opened using hook cautery. The 25-mm EEA stapler was brought through the left anterior lateral port site from the left side. The EEA stapler was brought through the open jejunal limb and its needle was deployed at the antimesenteric border where the anvil were mated for approximately 1 minute upon firing. The stapler was removed after irrigating the shaft of the instrument with warm normal saline. Donuts were found to be intact and on both sides. The da Chirag Xi robot arms were then re-docked. I sat at the console. The open jejunal limb defect was closed using 60 mm blue loads after releasing any tension from the blind jejunal limb. Care was taken to avoid any long blind limb to avoid candycane syndrome. Reinforcement sutures were placed along the gastrojejunal anastomosis and placed along the 9:00 and 3 o'clock position using 3-0 Vicryl. The Malagon and jejunojejunostomy mesenteric defects were closed using nonabsorbable 2-0 V LOC. I then went to the head of the bed to perform the esophagogastrojejunoscopy and a leak test. An Olympus gastroscope was passed along the posterior oropharynx which was unremarkable for any injury to the vocal cords. The scope was passed down to the proximal portion of the pouch, whereby no active bleeding was encountered. Excellent visualization of the gastrojejunostomy anastomosis, including the Marlen limb was encountered with endoscopic image obtained. The anastomosis was found to be patent. The gastrointestinal tract was desufflated. No evidence of intraoperative leak was encountered as the gastric pouch and anastomosis were submerged under normal saline solution. The robot was then undocked. I then went back to the bedside of the patient, whereby with coordinated effort of the residential living assistant, irrigation was aspirated from the upper abdominal cavity. Tisseel was placed circumferentially over the anastomosis of the gastrojejunostomy. The fascial defect of the EEA stapler was closed using Bernardo Jacome and 0 Vicryl. All instruments and pneumoperitoneum were evacuated from the abdominal cavity. The port correlating with the EEA stapler device was cleansed with normal saline solution and hydrogen peroxide. The rest of incisions were reapproximated using 4-0 Monocryl in an interrupted subcuticular fashion. Local anesthetic was infiltrated along the skin for postop analgesia. Liquid glue was applied to the skin. OptiFoam dressing was placed along the EEA stapler site. At the end of the procedure, needle, sponge and instrument count had been verified correct by the certified surgical assistant. The patient had tolerated the procedure well and was extubated and taken to the postanesthesia unit in stable condition. Intraoperative findings were described to the patient's family who were very pleased with the level of care.
[2020-07-03] MEDS ORDERED: diphenhydrAMINE 50 MG/ML 1 ML VIAL IVP ONE (13:05)
[2020-07-03] MEDS ORDERED: LABETALOL SYRINGE 5 MG/ML IVP ONE (13:37)
[2020-07-03] MEDS: ALBUTEROL NEBULIZED 2.5 MG/3 ML INHALATION SCH ×2 (15:19→19:35)
[2020-07-03] MEDS: 0.9% NACL WITH KCL 20 MEQ/L 1,000 ML IV SCH ×2 (16:36→19:48)
[2020-07-03] MEDS: ACETAMINOPHEN IV (For NPO) 1,000 MG in EMPTY BAG 1 BAG IVPB SCH (16:36)
[2020-07-03] MEDS: SIMETHICONE 40 MG/0.6 ML DROPS 2,000 MG/30 ML BOTTLE PO SCH (16:37)
[2020-07-03 17:46] LABS: Glucose,Whole Blood 264 mg/dL (75-99)
[2020-07-03] MEDS: ONDANSETRON 4 MG/2 ML VIAL IVP SCH (17:59)
[2020-07-03] MEDS: INSULIN ASPART (NovoLOG) 100 UNIT/ML VIAL SQ SCH (17:59)
[2020-07-03] MEDS ORDERED: ARTIFICIAL TEARS-HYPROMELLOSE DROPS 15 ML BTL BOTH EYES PRN (18:25)
[2020-07-03] MEDS: lisinopriL 20 MG TAB PO SCH (19:44)
[2020-07-03] MEDS: HYDROmorphone 1 MG/ML 1 ML SYRINGE IVP PRN (19:44)
[2020-07-04 00:03] LABS: Glucose,Whole Blood 211 mg/dL (75-99)
[2020-07-04] MEDS: SIMETHICONE 40 MG/0.6 ML DROPS 2,000 MG/30 ML BOTTLE PO SCH ×4 (00:11→17:06)
[2020-07-04] MEDS: ONDANSETRON 4 MG/2 ML VIAL IVP SCH ×4 (00:11→17:06)
[2020-07-04] MEDS: INSULIN ASPART (NovoLOG) 100 UNIT/ML VIAL SQ SCH ×4 (00:11→17:11)
[2020-07-04] MEDS: ACETAMINOPHEN IV (For NPO) 1,000 MG in EMPTY BAG 1 BAG IVPB SCH ×3 (00:53→14:58)
[2020-07-04] MEDS: LACTATED RINGERS 1,000 ML IV SCH (05:13)
[2020-07-04 05:44] LABS: Glucose,Whole Blood 204 mg/dL (75-99)
[2020-07-04] MEDS ORDERED: SODIUM CHLORIDE 0.9% 1,000 ML IV SCH (06:15)
[2020-07-04] MEDS: 0.9% NACL WITH KCL 20 MEQ/L 1,000 ML IV SCH (06:15)
[2020-07-04] MEDS: HYDROmorphone 1 MG/ML 1 ML SYRINGE IVP PRN (06:29)
[2020-07-04 06:43] LABS: Basophils % (A) 0 %; Eosinophils # (A) 0.3 k/uL (0-0.7); Eosinophils % (A) 4 %; HGB 12.3 gm/dL (11.4-16.0); Lymphocytes # (A) 1.1 k/uL (1.0-4.8); Lymphocytes % (A) 12 %; MCH 30.5 pg (25.0-35.0); MCHC 35.1 g/dL (31.0-37.0); MCV 86.8 fL (80.0-100.0); Mean Platelet Volume 7.8; Monocytes # (A) 0.4 k/uL (0-1.0); Monocytes % (A) 4 %; Neutrophils % (A) 79 %; Platelet Count 199 k/uL (150-450); RBC 4.03 m/uL (3.80-5.40); RDW 13.2 % (11.5-15.5); WBC 8.9 k/uL (3.8-10.6)
[2020-07-04 07:49] LABS: Glucose,Whole Blood 205 mg/dL (75-99)
[2020-07-04] MEDS ORDERED: 0.9% NACL WITH KCL 20 MEQ/L 1,000 ML IV SCH (08:00)
[2020-07-04] MEDS: lisinopriL 20 MG TAB PO SCH (08:49)
[2020-07-04] MEDS ORDERED: ENOXAPARIN 40 MG/0.4 ML SYRINGE SQ SCH (09:00)
[2020-07-04] MEDS ORDERED: PANTOPRAZOLE 40 MG/10 ML VIAL IV SCH (09:00)
[2020-07-04] MEDS: ALBUTEROL NEBULIZED 2.5 MG/3 ML INHALATION SCH ×4 (10:00→18:45)
[2020-07-04 10:03] LABS: African American GFR (CKD) 115.6 (60.0-200.0); Anion Gap 8.8 mmol/L (4.00-12.00); Calcium 8.6 mg/dL (8.7-10.3); Carbon Dioxide 27.2 mmol/L (21.6-31.8); Magnesium 1.6 mg/dL (1.5-2.4); Non-African American GFR(CKD) 99.8 (60.0-200.0); Phosphorus 3.2 mg/dL (2.4-5.1); Potassium 4.1 mmol/L (3.5-5.5)
[2020-07-04 10:37] VITALS: BMI 38.5
[2020-07-04 11:15] LABS: Glucose,Whole Blood 209 mg/dL (75-99)
[2020-07-04] MEDS: MAGNESIUM SULFATE-D5W PMX 1 GM in DEXTROSE/WATER 1 100ML.BAG IVPB SCH ×2 (12:50→15:27)
[2020-07-04] MEDS ORDERED: SODIUM CHLORIDE 0.9% 2,000 ML IV ONE (13:25)
[2020-07-04 14:21] LABS: Hemoglobin A1C 7.1 % (4.0-6.0)
[2020-07-04 14:36] VITALS: BP 147/67; TEMP 98.3
--- NOTE | 2020-07-04 14:36 | P.DS ---
Providers Date of admission: 07/03/20 07:55 Expected date of discharge: 07/04/20 Attending physician: Elif Cordova Primary care physician: Doni Escalante [facility] Course: Discharge diagnosis 1. Morbid obesity due to excess calories status post Robotic assisted da Chirag Xi laparoscopic Aminata-en-Y gastric bypass 2. Body mass index of 37.8 3. Osteoarthritis of the knees. 4. Osteoarthritis of the lower back. 5. Hypertensive heart disease. 6. Gastroesophageal reflux disease 7. Hyperlipidemia 8. Obstructive sleep apnea 9. Diabetes type 2, insulin dependent 10. Fatty liver disease 11. Pulmonary nodules 12. Hypothyroidism 13. Narcolepsy 14. Coronary artery disease 15. Depressive disorder Hospital course Katie Dougherty is a 59-year-old female who comes with lifelong morbid obesity. As result of morbid obesity, she has developed insulin-dependent diabetes type 2, hypertensive heart disease, obstructive sleep apnea, hyperlipidemia, osteoarthritis of the hips and knees. She has completed medical supervised weight loss. She completed medical including cardiac assessment. She has completed psychological risk assessment. All surgical options were reviewed. She elected for gastric bypass. Patient is tolerating bariatric clear liquid diet. She has any nausea or vomiting. She is passing gas. Her pain is controlled. She is afebrile. She has been ambulating. She is stable for discharge home. Physician Electrical Solderer note has been reviewed by physician. Signing provider agrees with the documented findings, assessment, and plan of care. Patient Condition at Discharge: Stable Plan - Discharge Summary Discharge Rx Participant: No New Discharge Prescriptions: No Action lisinopriL [Zestril] 20 mg PO BID buPROPion XL [Wellbutrin XL] 300 mg PO DAILY Omeprazole 40 mg PO DAILY Pravastatin Sodium [Pravachol] 80 mg PO HS Semaglutide [Ozempic] 1 injection SQ VASQUEZ Insulin NPH Hum/Reg Insulin Hm [Novolin 70-30 Flexpen] 40 unit SQ BID-W/MEALS Albuterol Inhaler [Ventolin Hfa Inhaler] 1 puff INHALATION DIRECTED PRN PRN Reason: sob armodafiniL [Armodafinil] 250 mg PO QAM ARIPiprazole [Abilify] 5 mg PO DAILY Levothyroxine Sodium [Levoxyl] 175 mcg PO DAILY Solontra 1 applic TOPICAL DIRECTED PRN PRN Reason: Rash Acetaminophen Tab [Tylenol Tab] 1,000 mg PO Q6HR PRN #30 tablet PRN Reason: Pain Discharge Medication List Omeprazole 40 mg PO DAILY 02/06/18 [History] buPROPion XL [Wellbutrin XL] 300 mg PO DAILY 02/06/18 [History] lisinopriL [Zestril] 20 mg PO BID 02/06/18 [History] Pravastatin Sodium [Pravachol] 80 mg PO HS 04/29/18 [History] Insulin NPH Hum/Reg Insulin Hm [Novolin 70-30 Flexpen] 40 unit SQ BID-W/MEALS 02/18/20 [History] Semaglutide [Ozempic] 1 injection SQ VASQUEZ 02/18/20 [History] ARIPiprazole [Abilify] 5 mg PO DAILY 03/17/20 [History] Albuterol Inhaler [Ventolin Hfa Inhaler] 1 puff INHALATION DIRECTED PRN 03/17/20 [History] Levothyroxine Sodium [Levoxyl] 175 mcg PO DAILY 03/17/20 [History] Solontra 1 applic TOPICAL DIRECTED PRN 03/17/20 [History] armodafiniL [Armodafinil] 250 mg PO QAM 03/17/20 [History] Acetaminophen Tab [Tylenol Tab] 1,000 mg PO Q6HR PRN #30 tablet 06/05/20 [Rx] [place] up [facility]ment(s[facility]Ref[place] [facility] Patient Instructions/Handouts: Aminata-en-Y Gastric Bypass (GEN), Aminata-en-Y Gastric Bypass (DC) Activity/Diet/Wound Care/Special Instructions: NO lifting over 4 pounds in 4 weeks, Aug 01December shower. No bath or tub soaks for 2 weeks until July 18 Dressings to be removed by your doctor in the office. Drink 64 oz of fluid daily. Notify bariatric center for temp over 101.0, increased pain, drainage from incisions. No straws or carbonated beverages. Liquid diet only. Sugar content should be less than 6 g to avoid dumping syndrome. Take MOM for constipation. CRUSH, OPEN, OR CUT TABLETS LARGER THAN A SIZE OF A TIC TAC Discharge Disposition: HOME SELF-CARE
[2020-07-04 15:36] VITALS: RESP 16
[2020-07-04 16:59] LABS: Glucose,Whole Blood 203 mg/dL (75-99)
[2020-07-04 19:17] VITALS: PULSE 83
[2020-07-05] MEDS ORDERED: bisacodyL 5 MG TABLET.DR PO PRN (08:00)
--- NOTE | 2020-07-06 21:05 | CDI ---
Documentation Clarification Form Date: 07/07/2020 From: Freddy Peacock Phone: If you have a question about this query, please contact Leticia Potter, Qa Engineer at [phone] between 8am and 5pm. Admit Date: 07/03/2020 Discharge Date: 07/04/2020 Patient Name: Katie Dougherty Visit Number: [id number] ATTENTION: The Clinical Documentation Specialists (CDI) and [facility] Coding Staff appreciate your assistance in clarifying documentation. Please respond to the clarification below the line at the bottom and electronically sign. The CDI & [facility] Coding staff will review the response and follow-up if needed. Please note: Queries are made part of the Legal Health Record. If you have any questions, please contact the author of this message via ITS. Dear Elif Urbina MD., Katie Dougherty is a 59-year-old female who comes with lifelong morbid obesity.As result of morbid obesity, she has developed insulin-dependent diabetes type 2, hypertensive heart disease, obstructive sleep apnea, hyperlipidemia, osteoarthritis of the hips and knees Asthma is documented in the past medical history. History/risk factors: Morbid obesity, SALUD, GERD, Type 2 DM Treatment: Albuterol Inhaler [Ventolin Hfa 1 puff INHALATION DIRECTED PRN 03/17/20 06/28/20 In your professional opinion, can you please further specify the following, if known? With Acute Exacerbation Status asthmaticus Acute lower respiratory infection COPD (specify with or without exacerbation) Chronic obstructive bronchitis Other, please specify ___ Unable to determine Severity Mild intermittent Mild persistent Moderate persistent Severe persistent Other, please specify ____ Unable to determine Mild intermittent COPD without exacerbation KM 07/10/20 @ 1043 MTDYani
== END 2020-07-04 18:00 | disposition home or self-care (01) | DRG 621 ==
LOC: 2ORMAIN 07:55 → 4SSUR 14:38
PROVIDERS: ADMIT Surgery Plastic and Reconstructive Surgery; ATTEND Surgery Plastic and Reconstructive Surgery
PROC: 8E0W4CZ Robotic Assisted Procedure of Trunk Region, Percutaneous Endoscopic Approach (ICD-10-PCS; principal; 2020-07-03 10:15)
PROC: 0D164ZA Bypass Stomach to Jejunum, Percutaneous Endoscopic Approach (ICD-10-PCS; principal; 2020-07-03 10:15)
PROC: 0DJ08ZZ Inspection of Upper Intestinal Tract, Via Natural or Artificial Opening Endoscopic (ICD-10-PCS; principal; 2020-07-03 10:15)
DX: E66.01 Morbid (severe) obesity due to excess calories (principal); E11.9 Type 2 diabetes mellitus without complications; Z79.4 Long term (current) use of insulin; Z68.37 Body mass index [BMI] 37.0-37.9, adult; J45.909 Unspecified asthma, uncomplicated; E78.5 Hyperlipidemia, unspecified; G47.33 Obstructive sleep apnea (adult) (pediatric); I11.9 Hypertensive heart disease without heart failure; R16.0 Hepatomegaly, not elsewhere classified; K21.9 Gastro-esophageal reflux disease without esophagitis; J44.9 Chronic obstructive pulmonary disease, unspecified; K76.0 Fatty (change of) liver, not elsewhere classified; R91.8 Other nonspecific abnormal finding of lung field; E03.9 Hypothyroidism, unspecified; M16.0 Bilateral primary osteoarthritis of hip; H54.7 Unspecified visual loss; M17.0 Bilateral primary osteoarthritis of knee; M47.9 Spondylosis, unspecified; I25.10 Atherosclerotic heart disease of native coronary artery without angina pectoris; G47.419 Narcolepsy without cataplexy; F32.9 Major depressive disorder, single episode, unspecified; Z90.710 Acquired absence of both cervix and uterus; Z90.49 Acquired absence of other specified parts of digestive tract; Z98.890 Other specified postprocedural states; Z88.0 Allergy status to penicillin; Z79.899 Other long term (current) drug therapy; Z79.890 Hormone replacement therapy; Z87.891 Personal history of nicotine dependence; Z82.49 Family history of ischemic heart disease and other diseases of the circulatory system; Z80.3 Family history of malignant neoplasm of breast; Z80.0 Family history of malignant neoplasm of digestive organs
CPT/HCPCS: 80051; 80053; 82310; 82565; 83036; 83735; 84100; 84520; 85025; 94640; 94760; 94762

== ENCOUNTER → 2020-07-10 | Outpatient (CLI) | payer BC ==
[2020-07-10 10:50] VITALS: BP 124/64; PULSE 72; RESP 18; TEMP 98.3
== END | disposition home or self-care (01) ==
LOC: BARWHC3 09:38
PROVIDERS: ATTEND Surgery Plastic and Reconstructive Surgery
DX: E66.01 Morbid (severe) obesity due to excess calories (principal); Z68.37 Body mass index [BMI] 37.0-37.9, adult; Z09 Encounter for follow-up examination after completed treatment for conditions other than malignant neoplasm; Z98.84 Bariatric surgery status
CPT/HCPCS: 99211

== ENCOUNTER → 2020-07-12 | Outpatient (CLI) | payer BC ==
[2020-07-12 14:24] VITALS: BP 154/62; PULSE 69; RESP 18; TEMP 98.5
--- NOTE | 2020-07-12 14:58 | P.PN ---
Subjective Progress Note Date: 07/12/20 HPI: She is s/p gastric bypass. She is 1 week. Her BSG is 212 this morning. Her blood has been low with insulin 1/2 use. ABDOMEN: Incisions intact ASSESSMENT: 1. Gastric Bypass PLAN: 1. She is doing well 2. Ok to return to work Jul 24 3. Follow-up 1 month post op Objective - Vital Signs Vital signs: Vital Signs Temp 98.5 F 07/12/20 14:16 Pulse 69 07/12/20 14:16 Resp 18 07/12/20 14:16 BP 154/62 07/12/20 14:16 Pulse Ox
--- NOTE | 2020-07-12 15:02 | P.PN ---
Progress Note - Text Progress Note Date: 07/12/20 To whom it may concern: Katie Shaniquamassimo is under my surgical care. She may return to work Jul 24. Regards, Elif Cordova
[2020-07-12 15:06] VITALS: BMI 37.0
== END | disposition home or self-care (01) ==
LOC: BARWHC3 13:42
PROVIDERS: ATTEND Surgery Plastic and Reconstructive Surgery
DX: Z48.815 Encounter for surgical aftercare following surgery on the digestive system (principal); Z98.84 Bariatric surgery status; E66.01 Morbid (severe) obesity due to excess calories; Z71.3 Dietary counseling and surveillance
CPT/HCPCS: 97803; 99211

== ENCOUNTER → 2020-07-14 | Outpatient (CLI) | payer BC ==
--- NOTE | 2020-07-14 17:05 | CT ---
EXAMINATION TYPE: CT chest wo con DATE OF EXAM: 07/14/2020 COMPARISON: 10/01/2018 HISTORY: Abnormal findings lung don CT DLP: 473.3 mGycm, Automated exposure control for dose reduction was used. CONTRAST: Performed injected with 0 mL of Isovue 300. TECHNIQUE: Axial images were obtained at 5 mm thick sections. Reconstructed images are reviewed on [employer] computer in the coronal plane. FINDINGS: Portion of the thyroid visualized is normal. There is thickening of some prior scarring at the right apex. This currently measures 2.4 x 1.4 cm. S eries 4 image 10. Prior measurement is 1.6 x 0.5 cm. There is a nodule within the posterior left lung greater fissure measuring 0.5 cm, present previously series 4 image 14. Punctate nodules in the periphery of the right lung. Series 4 image 14. There is a 0.7 cm density in the medial right middle lobe. Series 4 image 28, present previously. No enlarged mediastinal or hilar adenopathy is evident. Calcified pretracheal lymphadenopathy is not ed. The ascending aorta diameter at the level of the main pulmonary artery is 3.8 cm. The main pulmo nary artery diameter at the bifurcation is 2.[address] sections are obtained through the upper abdomen. Abdomen is essentially unremarkable. IMPRESSIONS: 1. Increasing size of soft tissue density at the right apex. Evaluation with PET/CT is recommended. 2. Additional nodularity appears to be stable over the interval.
== END | disposition home or self-care (01) ==
LOC: RADCTMAIN 08:38
PROVIDERS: ATTEND Family Medicine
DX: M79.89 Other specified soft tissue disorders (principal); R91.8 Other nonspecific abnormal finding of lung field
CPT/HCPCS: 71250

== ENCOUNTER → 2020-07-19 | Outpatient (CLI) | payer BC ==
--- NOTE | 2020-07-19 19:30 | MR ---
EXAMINATION TYPE: MR shoulder RT wo con DATE OF EXAM: 07/19/2020 COMPARISON: Plain film 06/28/2020 HISTORY: Extreme Rt shoulder pain x3 months TECHNIQUE: Multiplanar, multisequence imaging of the right shoulder is performed without contrast. FINDINGS: Rotator Cuff: The conjoined tendon is attenuated, there is abnormal increased intrasubstance signal p resent. Coronal image #15 shows possible undersurface tear, no full-thickness tear is evident. Acromioclavicular Joint: Hypertrophic change of the acromion clavicular joint causes mass effect on t he musculotendinous junction of supraspinatus Glenohumeral Joint: Intact, some degenerative changes present, spurring at the humeral head, coronal image 14 Labrum: Labrum shows abnormal increased intrinsic signal along the superior margin, coronal image #13 and 14, on axial image #10 there are some T2 bright foci which could represent some small ganglions are possibly para labral cysts, there is T2 bright focus at the posterior bony labrum on axial image 11 and 12 which may represent geode, some eburnation is also present. Anterior labrum shows somewhat irregular appearance, axial image 11, there may be some underlying fraying. Biceps Tendon: The long head of biceps is in normal location within bicipital groove. Bone marrow signal: Pseudocysts are present within the humeral head. Other: Some fluid signal present in the subacromial subdeltoid bursa. IMPRESSION: Partial thickness tear the rotator cuff, findings suggest tendinosis. Possible degenerative tear of t he labrum, difficult to exclude a SLAP lesion. Correlate for possible impingement. Mild osteoarthriti c changes.
== END | disposition home or self-care (01) ==
LOC: RADMRIMAIN 16:44
PROVIDERS: ATTEND Orthopaedic Surgery
DX: M19.011 Primary osteoarthritis, right shoulder (principal); M75.111 Incomplete rotator cuff tear or rupture of right shoulder, not specified as traumatic; S43.431A Superior glenoid labrum lesion of right shoulder, initial encounter

== ENCOUNTER → 2020-07-28 | Outpatient (CLI) | payer BC ==
[2020-07-28 16:06] LABS: Basophils # (A) 0.1 k/uL (0-0.2); Basophils % (A) 1 %; Eosinophils # (A) 0.3 k/uL (0-0.7); Eosinophils % (A) 5 %; HCT 38.4 % (34.0-46.0); HGB 13.6 gm/dL (11.4-16.0); Hyperchromasia Slight; Lymphocytes # (A) 2.1 k/uL (1.0-4.8); Lymphocytes % (A) 33 %; MCH 29.9 pg (25.0-35.0); MCHC 35.3 g/dL (31.0-37.0); MCV 84.8 fL (80.0-100.0); Mean Platelet Volume 7.8; Monocytes # (A) 0.3 k/uL (0-1.0); Monocytes % (A) 4 %; Neutrophils # (A) 3.6 k/uL (1.3-7.7); Neutrophils % (A) 56 %; Platelet Count 249 k/uL (150-450); Poikilocytosis Slight; RBC 4.53 m/uL (3.80-5.40); RDW 13.4 % (11.5-15.5); WBC 6.5 k/uL (3.8-10.6)
[2020-07-28 16:24] LABS: Potassium 4.3 mmol/L (3.5-5.1)
== END | disposition home or self-care (01) ==
LOC: LABPAT 15:04
PROVIDERS: ATTEND Orthopaedic Surgery
DX: Z01.818 Encounter for other preprocedural examination (principal); M75.41 Impingement syndrome of right shoulder
CPT/HCPCS: 80051; 85025

== ENCOUNTER → 2020-07-29 | Outpatient (CLI) | payer BC ==
--- NOTE | 2020-08-02 16:22 | PE ---
Nuclear medicine PET/CT HISTORY: R 91.8 on initial Patient received 12.9 mCi F-18 FDG intravenously and delayed scanning was performed from the skull ba se to the mid thighs. Localization and attenuation correction CT scan was performed. Correlation to chest CT dated 07/14/2020 Chest and neck: The right upper lobe area of scarring with associated calcification is again noted, t here is associated uptake, SUV is 2.6. There is evidence of old granulomatous disease as on prior CT. There is no pleural or pericardial effusion. Coronary artery calcification is present. There is no c ervical or supraclavicular adenopathy. No mediastinal, axillary, or hilar adenopathy. ABDOMEN: At the site of probable prior ostomy site in the left lower quadrant there is inflammatory c hange within the subcutaneous fat extending to the abdominal wall and skin, SUV 3.7. There is no asci annamarie. No retroperitoneal or pelvic adenopathy. Atheromatous changes are present within the aorta. Jessi ent is post cholecystectomy. Postop changes are extensive to the stomach, there are postop changes in the left lower quadrant to the bowel. Osseous structures show no suspicious uptake. IMPRESSION: Mild uptake associated with the right upper lobe area of scarring. Uptake may be inflamma tory within the subcutaneous fat in the left lower quadrant associated prior surgery.
== END | disposition home or self-care (01) ==
LOC: RADPETMAIN 08:01
PROVIDERS: ATTEND Family Medicine
DX: J98.4 Other disorders of lung (principal)
CPT/HCPCS: 78815; A9552

== ENCOUNTER 2020-08-02 11:07 | Day surgery (SDC) | payer BC ==
--- NOTE | 2020-07-31 10:01 | HP ---
HISTORY AND PHYSICAL CHIEF COMPLAINT: Right shoulder pain. 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 She is having pain with overhead use and at night. She has tried therapy, injections, and medications with only partial temporary relief. PAST MEDICAL HISTORY: Significant for hypertension, hypercholesterolemia, type 2 diabetes, hypothyroidism, sleep apnea, and asthma. PAST SURGICAL HISTORY: Significant for gastric bypass, hysterectomy, cholecystectomy, and carpal tunnel release. CURRENT MEDICATIONS: Abilify, bupropion, Levoxyl, lisinopril, insulin. She has allergies to PENICILLIN. FAMILY HISTORY: Significant for diabetes and cancer along with renal disease. SOCIAL HISTORY: Significant for previous tobacco use. 16 POINT REVIEW OF SYSTEMS: Otherwise reviewed and is noncontributory. PHYSICAL EXAMINATION: On examination, the patient is approximately 5 foot 4, 230 pounds of endomorphic habitus. HEENT: Exam is nonfocal. NECK: Supple. On examination of her right shoulder, she is tender about the anterior subacromial space. She has mild subacromial crepitus. Active range of motion, forward elevation 120 degrees, external rotation with the arm at side 60 degrees, internal rotation to L5. Motor strength is 4+/5 for abduction and external rotation. Impingement test, NEER test, and Speed test are positive. Her distal neurovascular exam appears intact in the right upper extremity. MRI report right shoulder 07/19/2020 shows questionable superior labral tear along with high-grade partial-thickness tear of the rotator cuff. IMPRESSION: 1. Right shoulder impingement with partial thickness rotator cuff tear. 2. Possible superior labral tear. 3. Calcific tendinitis, right rotator cuff. RECOMMENDATIONS: I talked to the patient at length regarding her condition and treatment options. At this point she remains quite symptomatic despite extensive conservative measures. After thorough discussion, she opts to proceed with surgery. We will plan to proceed with arthroscopic evaluation with probable subacromial decompression, possible rotator cuff debridement versus repair, in addition to possible biceps tenotomy. We will likely perform that as an outpatient procedure. Risks and benefits were discussed at length in layman's terms. MMODL / IJN: [id number] /
[2020-07-31 13:24] VITALS: BMI 35.2
[~2020-08-02 11:07] MED LIST changes: -ACETAMINOPHEN TAB 500 MG TAB PO STA; -CHLORHEXIDINE GLUCONATE 15 ML CUP MUCOUS MEM ONE; -ENOXAPARIN 40 MG/0.4 ML SYRINGE SQ STA; -GABAPENTIN 300 MG CAP PO STA; +LACTATED RINGERS 1,000 ML IV SCH; +LIDOCAINE 1% (10MG/ML) FOR IV START INTRADERMA PRN; +MIDAZOLAM 2 MG/2 ML VIAL IV PRN; -ONDANSETRON 4 MG/2 ML VIAL IVP ONE; -PANTOPRAZOLE 40 MG/10 ML VIAL IV STA; -SCOPOLAMINE 1.5MG/72HR PATCH TRANSDERM STA
[2020-08-02] MEDS ORDERED: ONDANSETRON 4 MG/2 ML VIAL ONE (11:43)
[2020-08-02 11:59] LABS: Glucose,Whole Blood 114 mg/dL (75-99)
[2020-08-02] MEDS ORDERED: ONDANSETRON 4 MG/2 ML VIAL IVP ONE (12:03)
[2020-08-02] MEDS ORDERED: MIDAZOLAM 2 MG/2 ML VIAL IVP ONE (12:26)
[2020-08-02] MEDS ORDERED: fentaNYL (PF) 50 MCG/ML 2 ML AMP ONE (12:44)
[2020-08-02] MEDS ORDERED: MIDAZOLAM 2 MG/2 ML VIAL ONE (12:44)
[2020-08-02] MEDS ORDERED: ROPIVACAINE 5 MG/ML 30 ML VIAL ONE (12:44)
[2020-08-02] MEDS ORDERED: SUCCINYLCHOLINE CHLORIDE 100 MG/5 ML SYR IV ONE (12:44)
[2020-08-02] MEDS ORDERED: PROPOFOL 10 MG/ML 20 ML VIAL IV ONE (12:44)
[2020-08-02] MEDS ORDERED: LIDOCAINE 1% INJ 10MG/ML (20 ML MDV) ONE (12:44)
--- NOTE | 2020-08-02 14:08 | P.OP ---
Date of Procedure: 08/02/20 Preoperative Diagnosis: Right shoulder impingement Postoperative Diagnosis: Same in addition to partial thickness rotator cuff tear/type II superior labral tear with biceps tendinitis Procedure(s) Performed: Right shoulder arthroscopic subacromial decompression/rotator cuff debridement/labral debridement/biceps tenotomy [facility]: Poli Yi Estimated Blood Loss (ml): 10 Pathology: none sent Condition: stable Disposition: PACU Indications for Procedure: The patient's a 59-year-old female who presents with progressive right shoulder pain despite conservative measures. A discussion of the risks and benefits of operative intervention versus continued conservative measures was made with patient. She opted to proceed with surgery. Operative risks to include infection, neurovascular injury, development clots, possible incomplete resolution of symptoms, possible recurrence of symptoms and need for subsequent procedures was discussed. Informed consent was obtained. Operative Findings: As below Description of Procedure: The patient was brought to the operating room, and after induction of general anesthesia was placed in a beachchair position. A preoperative interscalene block was placed for postoperative analgesia. I examined the right shoulder. There was no gross block to passive motion or gross glenohumeral instability. The right upper extremity was prepped and draped in normal fashion. The bony outlines the acromion, distal clavicle, and coracoid process were outlined with a skin marker. The glenohumeral joint was inflated with 50 mL of saline utilizing a spinal needle from posterior approach. A posterior portal was made through a 5 mm skin incision 1 cm medial and inferior to the posterior lateral border time. A blunt trocar was used to easily into the joint. Diagnostic arthroscopy was performed. An anterior portal was made just lateral to the coracoid process entering the joint above the subscapularis tendon. The subscapularis tendon appeared to be intact. Anterior labrum was intact. The inferior recess was inspected. The posterior labrum was intact. There was a high-grade partial-thickness tear of the long head of the biceps involving interarticular portion in addition to a type II superior labral tear. The labrum was debrided back to stable base with a motorized shaver. The biceps was released from the superior labrum with electrocautery and was allowed to retract to the bicipital groove. On inspection the rotator cuff, it was intact on the articular surface. The arthroscope was placed in the subacromial space. A lateral portal was made 2 centimeters inferior to the anterior lateral border of the acromion. Significant subacromial bursitis was noted and was debrided with a motorized shaver. The rotator cuff was inspected and a partial thickness tear involving the anterior aspect the supraspinatus was noted involving 10% of the tendon thickness. This was debrided back to stable base with a motorized shaver. The remaining rotator cuff was intact. The soft tissue on the undersurface of the acromion was debrided with a motorized shaver and electrocautery clearly defining the anterior medial and lateral borders as well as the distal clavicle. An anterior inferior acromioplasty was performed with a motorized alison starting anterolateral, then extending this posteriorly, then extending this medially. I converted to a flat acromion and this was verified in the posterior and lateral viewing portals. The arthroscope was then removed. The portals were closed with simple 3-0 nylon sutures. A sterile dressing was applied in addition to a sling. The patient was then awoken from general anesthesia and transferred to recovery room in good condition. Blood loss was estimated at 10 mL. No complications were incurred. Sponge and needle counts were correct in the case.
[2020-08-02] MEDS: HYDROmorphone 0.5 MG/0.5 ML SYRINGE IVP PRN ×4 (14:18→14:45)
[2020-08-02 14:56] VITALS: TEMP 96.8
[2020-08-02 15:08] VITALS: RESP 16
[2020-08-02 15:19] LABS: Glucose,Whole Blood 201 mg/dL (75-99)
[2020-08-02] MEDS ORDERED: INSULIN ASPART (NovoLOG) 100 UNIT/ML VIAL SQ ONE (15:26)
[2020-08-02] MEDS ORDERED: HYDROcodone/APAP 7.5-325MG 1 EACH TAB PO ONE ×2 (15:40→15:43)
[2020-08-02] MEDS ORDERED: HYDROcodone/APAP 7.5-325MG 1 EACH TAB ONE (15:43)
[2020-08-02 15:46] LABS: Glucose,Whole Blood 201 mg/dL (75-99)
[2020-08-02 16:19] VITALS: BP 137/74; PULSE 80
--- NOTE | 2020-08-02 17:31 | P.ANPRN ---
Procedure Note - Anesthesia - Nerve Block Performed Right Interscalene Time Out Performed: Yes (:) Date of Procedure: 08/02/20 Procedure Start Time: Procedure Stop Time: : Location of Patient: PreOp Indication: Acute Post-Operative Pain, Requested by Surgeon Sedation Type: Sedate with meaningful contact maintained Preparation: Sterile Prep Position: Supine Catheter: None Needle Types: Pajunk Needle Gauge: Other (see comment) (22g) Ultrasound used to visualize needle placement: Yes Ultrasound used to observe medication spread: Yes Injectate: 0.5% Ropivacaine (see comment for volume) (20cc+ Decadron 4mg) Blood Aspirated: No Pain Paresthesia on Injection Noted: No Resistance on Injection: Normal Image Stored and Saved: Yes Events: Uneventful and Well Tolerated
== END 2020-08-02 16:10 | disposition home or self-care (01) ==
LOC: OR 11:07
PROVIDERS: ATTEND Orthopaedic Surgery
DX: M75.111 Incomplete rotator cuff tear or rupture of right shoulder, not specified as traumatic (principal); M75.41 Impingement syndrome of right shoulder; M75.21 Bicipital tendinitis, right shoulder; S43.431A Superior glenoid labrum lesion of right shoulder, initial encounter; S46.111A Strain of muscle, fascia and tendon of long head of biceps, right arm, initial encounter; I10 Essential (primary) hypertension; E78.5 Hyperlipidemia, unspecified; J45.909 Unspecified asthma, uncomplicated; Z87.891 Personal history of nicotine dependence; Z88.0 Allergy status to penicillin; G47.33 Obstructive sleep apnea (adult) (pediatric); E11.9 Type 2 diabetes mellitus without complications; K76.0 Fatty (change of) liver, not elsewhere classified; Z79.899 Other long term (current) drug therapy; I25.10 Atherosclerotic heart disease of native coronary artery without angina pectoris; E07.9 Disorder of thyroid, unspecified; Z79.4 Long term (current) use of insulin; E03.9 Hypothyroidism, unspecified; E78.00 Pure hypercholesterolemia, unspecified; Z90.49 Acquired absence of other specified parts of digestive tract; Z90.710 Acquired absence of both cervix and uterus; Z98.890 Other specified postprocedural states; Z79.890 Hormone replacement therapy; Z83.3 Family history of diabetes mellitus; Z80.9 Family history of malignant neoplasm, unspecified
CPT/HCPCS: 29823; 29826; 64415; 76942; J2250; J1100; J0690; J2405; J2001; J3010; J2795; J0330; J2704; J1170

== ENCOUNTER → 2020-08-23 | Outpatient (CLI) | payer BC ==
[2020-08-23 15:22] VITALS: BP 127/80; PULSE 80; RESP 18; TEMP 98.1; BMI 34.3
--- NOTE | 2020-08-23 15:47 | P.PN ---
Subjective Progress Note Date: 08/23/20 DATE OF SERVICE: 08/23/2020 CHIEF COMPLAINT: Status post gastric bypass HISTORY OF PRESENT ILLNESS: Katie Dougherty is a 59-year-old female who is status post gastric bypass, 07/03/20. She is 2 months out. She reports high blood sugars in the morning over 200s. She runs very low at night less than 60. She is still taking insulin. She is only on insulin. She had emergency shoulder surgery less than 3 weeks ago. She has constipation. At height of 5 feet 4 inches, her ideal body weight is 144 pounds. She comes in 200 pounds from 230 pounds, over 2 months. She has lost 30 pounds in 2 months. Her BMI 40.0 is down to 34.3. She is 56 pounds overweight. Her lifetime weight loss is 30 pounds. Her lifetime percent excess weight loss is 35%. PHYSICAL EXAM: VITAL SIGNS: Height 5 foot 4 inches, weight 200 pounds. BMI 34.3 Vital Signs Temp 98.1 F 08/23/20 15:17 Pulse 80 08/23/20 15:17 Resp 18 08/23/20 15:17 BP 127/80 08/23/20 15:17 Pulse Ox Intake & Output 08/24/20 08/24/20 08/25/20 06:59 18:59 06:59 Weight 90.718 kg GENERAL: Well-developed in no acute distress. HEENT: No scleral icterus. Extraocular movements grossly intact. Hears conversational speech. No nasal drainage. NECK: Supple without lymphadenopathy. CHEST: Nonlabored respirations with equal bilateral excursions. CARDIOVASCULAR: Regular rate and regular rhythm. Distal 2+ pulses. ABDOMEN: Obese. No cellulitis. Incisions is intact. MUSCULOSKELETAL: No clubbing, cyanosis. NEURO: No focal or lateralizing signs. Cranial nerves 2 through 12 grossly within normal limits. PSYCH: Appropriate affect. Alert and oriented to person, place and time. SKIN: Good skin turgor. Well perfused. ASSESSMENT: 1. Morbid obesity due to excess calories 2. Body mass index of 40.0, initial to 34.4 3. Depressive disorder 4. Hypertensive heart disease 5. Hypothyroidism 6. Diabetes type II, insulin dependent 7. Hyperlipidemia 8. Asthma 9. Gastroesophageal reflux disease 10. Fatty liver disease 11. Obstructive sleep apnea 12. Lung mass 13. Bursitis 14. Rosacea 15. Vitamin D deficiency 16. Status post lysis of adhesions 17. Status post gastric bypass PLAN: 1. Recommend bariatric labs. 2. Miralax prescription for constipation. Objective - Vital Signs Vital signs: Vital Signs Temp 98.1 F 08/23/20 15:17 Pulse 80 08/23/20 15:17 Resp 18 08/23/20 15:17 BP 127/80 08/23/20 15:17 Pulse Ox Intake & Output 08/22/20 08/23/20 08/23/20 18:59 06:59 18:59 Weight 90.718 kg - Labs CBC & Chem 7: 08/23/20 16:25 08/23/20 16:25
[2020-08-23 16:49] LABS: HCT 40.1 % (34.0-46.0); HGB 14.1 gm/dL (11.4-16.0); MCH 29.7 pg (25.0-35.0); MCHC 35.1 g/dL (31.0-37.0); MCV 84.5 fL (80.0-100.0); Platelet Count 270 k/uL (150-450); RBC 4.75 m/uL (3.80-5.40); RDW 13.3 % (11.5-15.5); WBC 7.3 k/uL (3.8-10.6)
[2020-08-23 17:50] LABS: Partial Thromboplastin Time 22.4 sec (22.0-30.0); Prothrombin Time 10.5 sec (9.0-12.0)
[2020-08-24 01:52] LABS: Hemoglobin A1C 7.2 % (4.0-6.0)
[2020-08-24 03:44] LABS: % Iron Saturation 26.49 (12.00-45.00); African American GFR (CKD) 92.9 (60.0-200.0); Albumin 4.9 g/dL (3.80-4.90); Albumin/Globulin Ratio 2.58 (1.60-3.17); Anion Gap 11.9 mmol/L (4.00-12.00); Calcium 10.1 mg/dL (8.7-10.3); Carbon Dioxide 27.1 mmol/L (21.6-31.8); Chol/HDL Ratio 4.03; Globulin 1.9 g/dL (1.6-3.3); LDL Cholesterol,Calculated 75.8 mg/dL (0.0-131.0); Magnesium 1.7 mg/dL (1.5-2.4); Non-African American GFR(CKD) 80.1 (60.0-200.0); Phosphorus 5.1 mg/dL (2.4-5.1); Potassium 4.4 mmol/L (3.5-5.5); Total Bilirubin 0.9 mg/dL (0.3-1.2); Total Protein 6.8 g/dL (6.2-8.2); VLDL Calculation 33.2 mg/dL (5.00-40.00)
[2020-08-24 03:55] LABS: Ferritin 145.8 ng/mL (10.0-291.0)
[2020-08-24 04:06] LABS: Folate, Serum 9.9 ng/mL
[2020-08-25 13:14] LABS: Zinc, Serum 92 ug/dL (60-130)
[2020-08-27 17:04] LABS: Selenium 167 mcg/L (63-160)
[2020-08-28 07:04] LABS: Vitamin A 62 ug/dL (38-106)
[2020-08-28 13:26] LABS: Vit B1(Thiamine) 78 ug/L (38-122)
== END | disposition home or self-care (01) ==
LOC: BARWHC3 14:19
PROVIDERS: ATTEND Surgery Plastic and Reconstructive Surgery
DX: E66.01 Morbid (severe) obesity due to excess calories (principal); F32.9 Major depressive disorder, single episode, unspecified; I11.9 Hypertensive heart disease without heart failure; E03.9 Hypothyroidism, unspecified; E11.9 Type 2 diabetes mellitus without complications; Z79.4 Long term (current) use of insulin; E78.5 Hyperlipidemia, unspecified; J45.909 Unspecified asthma, uncomplicated; K21.9 Gastro-esophageal reflux disease without esophagitis; G47.33 Obstructive sleep apnea (adult) (pediatric); E55.9 Vitamin D deficiency, unspecified; K76.0 Fatty (change of) liver, not elsewhere classified; R91.8 Other nonspecific abnormal finding of lung field; M71.9 Bursopathy, unspecified; L71.9 Rosacea, unspecified; D50.8 Other iron deficiency anemias; E44.0 Moderate protein-calorie malnutrition; K74.1 Hepatic sclerosis; N19 Unspecified kidney failure; K50.90 Crohn's disease, unspecified, without complications; Z98.84 Bariatric surgery status; Z68.34 Body mass index [BMI] 34.0-34.9, adult
CPT/HCPCS: 80053; 80061; 82306; 82525; 82607; 82728; 82746; 83036; 83540; 83550; 83735; 83970; 84100; 84134; 84255; 84425; 84443; 84590; 84630; 85027; 85610; 85730; 97803; 99211

== ENCOUNTER → 2020-10-04 | Outpatient (CLI) | payer BC ==
[2020-10-04 16:03] VITALS: BP 146/83; PULSE 78; RESP 18; TEMP 97.9; BMI 32.5
--- NOTE | 2020-10-04 16:15 | P.PN ---
Subjective Progress Note Date: 10/04/20 DATE OF SERVICE: 10/04/2020 CHIEF COMPLAINT: Status post gastric bypass HISTORY OF PRESENT ILLNESS: Katie Dougherty is a 59-year-old female who is status post gastric bypass, 07/03/20. She is 3 months out. She reports her hemoglobin A1c is down to 7.2. She had shoulder surgery and is doing well. She denies gastroesophageal reflux disease. She reports new intolerance to milk. She is taking her multivitamin. All of her medications are the same, except her insulin is decreased. Her protein intake is 64 gram to 74 grams daily. She has completed recent blood work. At height of 5 feet 4 inches, her ideal body weight is 144 pounds. She comes in 190 pounds from 200 pounds, over 1 month ago. She has lost 10 pounds in 1 month. Her BMI 40.0 is down to 32.6. She is 46 pounds overweight. Her lifetime weight loss is 40 pounds. Her lifetime percent excess weight loss is 47 %. PHYSICAL EXAM: VITAL SIGNS: Height 5 foot 4 inches, weight 190 pounds. BMI 32.6 Vital Signs Temp 97.9 F 10/04/20 15:51 Pulse 78 10/04/20 15:51 Resp 18 10/04/20 15:51 BP 146/83 10/04/20 15:51 Pulse Ox GENERAL: Well-developed in no acute distress. HEENT: No scleral icterus. Extraocular movements grossly intact. Hears conversational speech. No nasal drainage. NECK: Supple without lymphadenopathy. CHEST: Nonlabored respirations with equal bilateral excursions. CARDIOVASCULAR: Regular rate and regular rhythm. Distal 2+ pulses. ABDOMEN: Obese. No cellulitis. Incisions is intact. MUSCULOSKELETAL: No clubbing, cyanosis. NEURO: No focal or lateralizing signs. Cranial nerves 2 through 12 grossly within normal limits. PSYCH: Appropriate affect. Alert and oriented to person, place and time. SKIN: Good skin turgor. Well perfused. LABS: Hgb A1c 7.2. Triglycerides is elevated. Selenium is elevate ASSESSMENT: 1. Morbid obesity due to excess calories 2. Body mass index of 40.0, initial to 32.6 3. Depressive disorder 4. Hypertensive heart disease 5. Hypothyroidism 6. Diabetes type II, insulin dependent 7. Hyperlipidemia 8. Asthma 9. Gastroesophageal reflux disease 10. Fatty liver disease 11. Obstructive sleep apnea 12. Lung mass 13. Bursitis 14. Rosacea 15. Vitamin D deficiency 16. Status post lysis of adhesions 17. Status post gastric bypass 18. Hypertriglyceridemia PLAN: 1. She reports new intolerance to diary. Alternatives to milk includes lactaid. 2. Recommend bariatric labs. 3. Overall, she is doing well. 4. Follow-up 6 months post-op. Objective - Vital Signs Vital signs: Vital Signs Temp 97.9 F 10/04/20 15:51 Pulse 78 10/04/20 15:51 Resp 18 10/04/20 15:51 BP 146/83 10/04/20 15:51 Pulse Ox Intake & Output 10/03/20 10/04/20 10/04/20 18:59 06:59 18:59 Weight 86.183 kg - Labs CBC & Chem 7: 10/04/20 16:27 10/04/20 16:27
[2020-10-04 16:41] LABS: HCT 40.8 % (34.0-46.0); HGB 14.4 gm/dL (11.4-16.0); MCHC 35.2 g/dL (31.0-37.0); MCV 85.2 fL (80.0-100.0); Mean Platelet Volume 7.6; Platelet Count 251 k/uL (150-450); RBC 4.79 m/uL (3.80-5.40); WBC 5.9 k/uL (3.8-10.6)
[2020-10-05 00:16] LABS: INR 0.96 (0.90-1.11); Partial Thromboplastin Time 25.9 sec (23.5-31.0); Prothrombin Time 10.5 sec (9.9-11.9)
[2020-10-05 04:03] LABS: % Iron Saturation 22.4 (12.00-45.00); African American GFR (CKD) 92.9 (60.0-200.0); Albumin 4.3 g/dL (3.80-4.90); Albumin/Globulin Ratio 1.72 (1.60-3.17); Anion Gap 10.9 mmol/L (4.00-12.00); BUN/Creat Ratio 12.5 Ratio (12.00-20.00); Calcium 10.2 mg/dL (8.7-10.3); Carbon Dioxide 28.1 mmol/L (21.6-31.8); Chol/HDL Ratio 5.37; Globulin 2.5 g/dL (1.6-3.3); Magnesium 1.7 mg/dL (1.5-2.4); Non-African American GFR(CKD) 80.1 (60.0-200.0); Phosphorus 5.4 mg/dL (2.4-5.1); Total Bilirubin 0.9 mg/dL (0.3-1.2); Total Protein 6.8 g/dL (6.2-8.2)
[2020-10-05 04:12] LABS: Ferritin 107.7 ng/mL (10.0-291.0)
[2020-10-05 04:26] LABS: Folate, Serum 16.2 ng/mL
[2020-10-05 15:46] LABS: Zinc, Serum 70 ug/dL (60-130)
[2020-10-06 13:58] LABS: Vit B1(Thiamine) 91 ug/L (38-122)
[2020-10-06 14:11] LABS: Vitamin A 55 ug/dL (38-106)
[2020-10-11 17:26] LABS: Selenium 143 mcg/L (63-160)
== END | disposition home or self-care (01) ==
LOC: BARWHC3 14:54
PROVIDERS: ATTEND Surgery Plastic and Reconstructive Surgery
DX: E66.01 Morbid (severe) obesity due to excess calories (principal); F32.9 Major depressive disorder, single episode, unspecified; I11.9 Hypertensive heart disease without heart failure; E03.9 Hypothyroidism, unspecified; E11.9 Type 2 diabetes mellitus without complications; E78.5 Hyperlipidemia, unspecified; J45.909 Unspecified asthma, uncomplicated; K21.9 Gastro-esophageal reflux disease without esophagitis; G47.33 Obstructive sleep apnea (adult) (pediatric); E55.9 Vitamin D deficiency, unspecified; K76.0 Fatty (change of) liver, not elsewhere classified; E78.1 Pure hyperglyceridemia; R91.8 Other nonspecific abnormal finding of lung field; M71.9 Bursopathy, unspecified; L71.9 Rosacea, unspecified; Z68.32 Body mass index [BMI] 32.0-32.9, adult; Z79.4 Long term (current) use of insulin; Z98.84 Bariatric surgery status
CPT/HCPCS: 36415; 80053; 80061; 82306; 82525; 82607; 82728; 82746; 83540; 83550; 83721; 83735; 83970; 84100; 84134; 84255; 84425; 84443; 84590; 84630; 85027; 85610; 85730; 97803; 99211

== ENCOUNTER → 2022-06-21 | Outpatient (CLI) | payer BC ==
--- NOTE | 2022-06-21 10:22 | CT ---
EXAMINATION TYPE: CT chest wo con DATE OF EXAM: 06/21/2022 COMPARISON: 07/14/2020 HISTORY: Multiple lung nodules CT DLP: 451 mGycm, Automated exposure control for dose reduction was used. CONTRAST: Performed injected with 0 mL of Isovue 300. TECHNIQUE: Axial images were obtained at 5 mm thick sections. Reconstructed images are reviewed on [employer] computer in the coronal plane. FINDINGS: There is a 1.2 cm long density at the left apex with additional stranding adjacent. Series 4 image 13 adjacent 0.6 and meter nodule may be present. Series 4 image 14. These areas have diminished in full ness from the comparison. Previous combined measurement 2.4 x 1.4 cm. 0.5 cm nodule is in the posterior left upper lung field. Series 4 image 15. Stable from comparison. 0.7 cm nodules in the medial right mid lung. Series 4 image 33. Stable from comparison. No enlarged mediastinal or hilar adenopathy is evident. The ascending aorta diameter at the level o f the main pulmonary artery is 3.7 cm. The main pulmonary artery diameter at the bifurcation is 2.6 cm. Coronary artery calcification is present. Limited CT sections are obtained through the upper abdomen. Postsurgical changes of the gastric sleev e are within the stomach. Bowel surgery is also evident. The gallbladder is surgically absent. IMPRESSIONS: 1. Diminished size of right apical masslike area. Small nodule remains. 2. Previous bilateral lung nodules are stable in comparison.
== END | disposition home or self-care (01) ==
LOC: RADCTMAIN 07:46
PROVIDERS: ATTEND Family Medicine
DX: R91.8 Other nonspecific abnormal finding of lung field (principal)
CPT/HCPCS: 71250

== ENCOUNTER → 2023-10-10 | Outpatient (CLI) | payer BC ==
--- NOTE | 2023-10-10 21:19 | CT ---
EXAMINATION TYPE: CT abdomen wo con CT DLP: 325.5 mGycm, Automated exposure control for dose reduction was used. DATE OF EXAM: 10/10/2023 5:24 PM COMPARISON: Pet/CT 07/29/2020 CLINICAL INDICATION:Female, 63 years old with history of R19.09 OTHER INTRA-ABDOMINAL AND PELVIC SWEL LING,; Right upper abdominal bulge x 3 years. TECHNIQUE: Axial CT abdomen wo con;Sagittal and coronal reformats were created on a separate worksta tion. Contrast used: mL of , (none if empty) Oral contrast used: without Oral Contrast (none if empty) FINDINGS: LOWER CHEST: Unremarkable ABDOMEN LIVER: Unremarkable GALLBLADDER AND BILE DUCTS: The gallbladder appears surgically absent. PANCREAS: Unremarkable. SPLEEN: Unremarkable. ADRENAL GLANDS: Unremarkable. KIDNEYS AND URETERS: No evidence of hydronephrosis or renal calculus. The ureters are unremarkable. STOMACH AND BOWEL: No evidence of bowel obstruction. Postsurgical changes left upper quadrant bowel i s surgical suture identified. Postsurgical changes to the stomach. Scattered colonic diverticula. The appendix is normal. There is moderate to large amount stool in the right colon. PERITONEUM/RETROPERITONEUM: No evidence of pneumoperitoneum or free fluid. VASCULATURE: No evidence of aortic aneurysm. Severe atherosclerosis of the arterial vasculature. MUSCULOSKELETAL: No acute osseous abnormalities LYMPH NODES: No gross evidence for lymphadenopathy. SOFT TISSUE/ABDOMINAL WALL: No evidence for subcutaneous mass, fluid collection or abnormality to cor relate with a right upper abdominal bulge no palpable marker was placed. IMPRESSION: 1. No evidence for subcutaneous mass, fluid collection or abnormality to correlate with a right uppe r abdominal bulge no palpable marker was placed. 2. Postsurgical changes to the stomach and bowel. No evidence for acute abdominal process. Moderate to large amount stool throughout the right colon.
== END | disposition home or self-care (01) ==
LOC: RADCTMAIN 16:55
PROVIDERS: ATTEND Family Medicine
DX: R19.09 Other intra-abdominal and pelvic swelling, mass and lump (principal)
CPT/HCPCS: 74150

== ENCOUNTER → 2023-12-24 | Outpatient (CLI) | payer BC ==
[2023-12-24 14:25] LABS: African American GFR (CKD) >90 (>60 ml/min/1.73 sqM); Blood Urea Nitrogen 21 mg/dL (7-17); Non-African American GFR(CKD) >90 (>60 ml/min/1.73 sqM)
--- NOTE | 2023-12-24 15:15 | CT ---
EXAMINATION TYPE: CT chest w con DATE OF EXAM: 12/24/2023 COMPARISON: 06/21/2022 HISTORY: Lung nodule x [address] DLP: 296.6 mGycm Automated exposure control for dose reduction was used. CONTRAST: CT scan of the chest is performed with IV Contrast, patient injected with 100 mL of Isovue 300. FINDINGS: LUNGS: Stable right apical pleural parenchymal scarring with elongated hyperdensity which may reflect focal calcification versus postoperative clip. Correlate clinically. Stable 5 mm nodule left upper l obe posteriorly. The lungs are otherwise clear. No focal consolidation. No pleural effusion. No evide nce for interstitial lung disease. MEDIASTINUM: There are no greater than 1 cm hilar or mediastinal lymph nodes. No pericardial effusi on is seen. Thoracic aorta is of normal caliber. The heart is not enlarged. UPPER ABDOMEN: No significant abnormality appreciated. OTHER: No additional significant abnormality is seen. IMPRESSION: Stable right apical pleural parenchymal scarring with elongated hyperdensity which may reflect focal calcification versus postoperative clip. Correlate clinically. Stable 5 mm nodule left upper lobe pos teriorly. The lungs are otherwise clear.
== END | disposition home or self-care (01) ==
LOC: RADCTMAIN 13:41
PROVIDERS: ATTEND Internal Medicine
DX: R91.8 Other nonspecific abnormal finding of lung field (principal)
CPT/HCPCS: 82565; 84520; 71260; 36415; Q9967